=== PATIENT | male | born 1935 | race Caucasian/White ===

== ENCOUNTER 2017-02-27 16:43 | Inpatient (IN) | payer MEDICARE ==
[2017-02-27] MEDS ORDERED: DEXTROSE 40% GEL 15 GM TUBE PO PRN ×2 (17:27)
[2017-02-27] MEDS ORDERED: DEXTROSE 50%-WATER 25 GM/50 ML DISP.SYRIN IV PRN ×2 (17:27)
[2017-02-27] MEDS ORDERED: GLUCAGON,HUMAN RECOMB 1 MG INJ SUBCUT PRN (17:27)
--- NOTE | 2017-02-27 17:47 | PDOC H&P ---
History of Present Illness Admission Date/PCP: 02/27/17 16:43 SUKHI HOOPER, Patient complains of: unsteady on his feet. not thinking streight History of Present Illness: SHANIA BOURGEOIS is a 81 year old male Past Medical History Cardiac Medical History: Reports: Hypertension Pulmonary Medical History: Reports: None Neurological Medical History: Reports: Ischemic CVA Endocrine Medical History: Reports: None Renal/ Medical History: Reports: None Malignancy Medical History: Reports: None GI Medical History: Reports: None Musculoskeltal Medical History: Reports: Arthritis Skin Medical History: Reports: None Psychiatric Medical History: Reports: None Past Surgical History Past Surgical History: Reports: Carotid Endarterectomy Social History Information Source: Patient Lives with: Alone Smoking Status: Never Smoker Frequency of Alcohol Use: Occasional Hx Recreational Drug Use: No Drugs: None - Advance Directive Resuscitation Status: Full Code Family History Family History: Hypertension Parental Family History Reviewed: Yes Children Family History Reviewed: Yes Sibling(s) Family History Reviewed.: Yes Review of Systems All systems: as per [facility] Physical Exam General appearance: PRESENT: mild distress Head exam: PRESENT: atraumatic Eye exam: PRESENT: conjunctiva pink Neck exam: PRESENT: carotid bruit Respiratory exam: PRESENT: clear to auscultation shaun Cardiovascular exam: PRESENT: RRR, +S1, +S2 Pulses: PRESENT: other Vascular exam: PRESENT: normal capillary refill GI/Abdominal exam: PRESENT: normal bowel sounds, soft Extremities exam: PRESENT: full ROM Musculoskeletal exam: PRESENT: ambulatory Neurological exam: PRESENT: alert, abnormal gait, motor sensory deficit Psychiatric exam: PRESENT: flat affect Assessment & Plan - Diagnosis (1) TIA (transient ischemic attack) Qualifiers: Transient cerebral ischemia type: carotid artery syndrome (hemispheric) Qualified Code(s): G45.1 - Carotid artery syndrome (hemispheric) Is this a current diagnosis for this admission?: Yes (2) Confusion and disorientation Is this a current diagnosis for this admission?: Yes (3) Unsteady gait Is this a current diagnosis for this admission?: Yes (4) PAD (peripheral artery disease) Is this a current diagnosis for this admission?: Yes (5) HTN (hypertension) Qualifiers: Hypertension type: essential hypertension Qualified Code(s): I10 - Essential (primary) hypertension Is this a current diagnosis for this admission?: Yes (6) Hyperlipemia Qualifiers: Hyperlipidemia type: mixed hyperlipidemia Qualified Code(s): E78.2 - Mixed hyperlipidemia Is this a current diagnosis for this admission?: Yes
--- NOTE | 2017-02-27 18:02 | RADIOLOGY REPORT (SQ) ---
EXAM DESCRIPTION: CT HEAD WITHOUT COMPLETED DATE/TIME: 02/27/2017 5:39 pm REASON FOR STUDY: CVA altered mental status COMPARISON: None. TECHNIQUE: Axial images acquired through the brain without intravenous contrast. Images reviewed wi th bone, brain and subdural windows. Images stored on PACS. All CT scanners at this facility use dose modulation, iterative reconstruction, and/or weight based d osing when appropriate to reduce radiation dose to as low as reasonably achievable (ALARA). [facility]: Dose Right [facility]: CareDose [facility]: Dose Right [facility]: Teradose 4D [facility]: ServiceRelated RADIATION DOSE: 49mGy. LIMITATIONS: None. FINDINGS: VENTRICLES: Prominent, but not disproportionate to the degree of atrophy. CEREBRUM: Cortical atrophy is present. There is a small area of encephalomalacia in right frontal lo be on image 25 series 2. No masses. No hemorrhage. No midline shift. Normal zarate/white matter dif ferentiation. No evidence for acute infarction. CEREBELLUM: No masses. No hemorrhage. No alteration of density. No evidence for acute infarction. EXTRAAXIAL SPACES: No fluid collections. No masses. ORBITS AND GLOBE: No intra- or extraconal masses. Normal contour of globe without masses. CALVARIUM: No fracture. PARANASAL SINUSES: No fluid or mucosal thickening. SOFT TISSUES: No mass or hematoma. OTHER: No other significant finding. IMPRESSION: Involutional changes of aging with what appears to be an 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 There is no hemorrhage. COMMENT: Findings were discussed with Dr. Stock at 1756 hours on this date. TECHNICAL DOCUMENTATION: JOB ID: [id number] Quality ID # [id number]: Final reports with documentation of one or more dose reduction techniques (e.g., Au tomated exposure control, adjustment of the mA and/or kV according to patient size, use of iterative reconstruction technique) 2010 [employer]- All Rights Reserved
[2017-02-27 18:14] LABS: ABSOLUTE BASOPHILS # (AUTO) 0.2 10^3/uL (0.0-0.2); ABSOLUTE EOSINOPHILS # (AUTO) 0.2 10^3/uL (0.0-0.6); ABSOLUTE LYMPHOCYTES (AUTO) 2.2 10^3/uL (0.5-4.7); ABSOLUTE MONOCYTES (AUTO) 0.7 10^3/uL (0.1-1.4); ABSOLUTE NEUT (AUTO) 3.7 10^3/uL (1.7-8.2); BASOPHILS % (AUTO) 2.1 % (0-2); EOSINOPHILS % (AUTO) 3.4 % (0-6); HEMATOCRIT 37.3 % (37.9-51.0); HGB HCT DIFFERENCE 1.7; LYMPHOCYTES % (AUTO) 31.4 % (13-45); MEAN CORPUSCULAR HEMOGLOBIN 36.4 pg (27.0-33.4); MEAN CORPUSCULAR HGB CONC 34.8 g/dL (32.0-36.0); MEAN CORPUSCULAR VOLUME 105 fl (80-97); MONOCYTES % (AUTO) 10.4 % (3-13); RED BLOOD COUNT 3.56 10^6/uL (4.35-5.55); RED CELL DISTRIBUTION WIDTH 13.6 % (11.5-14.0); SEGMENTED NEUTROPHILS % (AUTO) 52.7 % (42-78); WHITE BLOOD COUNT 7.1 10^3/uL (4.0-10.5)
[2017-02-27 18:22] LABS: PROTHROMBIN TIME 13.1 SEC (11.4-15.4)
[2017-02-27 18:23] LABS: PARTIAL THROMBOPLASTIN TIME 27.2 SEC (23.5-35.8)
[2017-02-27 18:35] LABS: ALANINE AMINOTRANSFERASE 35 U/L (21-72); ALBUMIN 4.3 g/dL (3.5-5.0); ALKALINE PHOSPHATASE 58 U/L (38-126); ANION GAP 12 (5-19); ASPARTATE AMINO TRANSFERASE 35 U/L (17-59); BILIRUBIN,DIRECT 0.4 mg/dL (0.0-0.4); BILIRUBIN,TOTAL 0.6 mg/dL (0.2-1.3); BLOOD UREA NITROGEN 8 mg/dL (7-20); CALCIUM 9.2 mg/dL (8.4-10.2); CARBON DIOXIDE 29 mmol/L (22-30); CHLORIDE 102 mmol/L (98-107); CREATININE RESULT 0.87 mg/dL (0.52-1.25); GLUCOSE 108 mg/dL (75-110); POTASSIUM 3.5 mmol/L (3.6-5.0); SODIUM 142.5 mmol/L (137-145); TOTAL PROTEIN 7.8 g/dL (6.3-8.2)
[2017-02-27] MEDS: ENOXAPARIN SODIUM INJ 40 MG/0.4 ML DISP.SYRIN SUBCUT SCH (18:52)
[2017-02-27] MEDS: 1/2 NORMAL SALINE 1,000 ML IV PRN (18:56)
[2017-02-28] MEDS: 1/2 NORMAL SALINE 1,000 ML IV PRN ×2 (00:55→08:32)
[2017-02-28 06:15] LABS: ABSOLUTE BASOPHILS # (AUTO) 0.1 10^3/uL (0.0-0.2); ABSOLUTE EOSINOPHILS # (AUTO) 0.2 10^3/uL (0.0-0.6); ABSOLUTE LYMPHOCYTES (AUTO) 1.5 10^3/uL (0.5-4.7); ABSOLUTE MONOCYTES (AUTO) 0.6 10^3/uL (0.1-1.4); ABSOLUTE NEUT (AUTO) 2.6 10^3/uL (1.7-8.2); BASOPHILS % (AUTO) 1.3 % (0-2); EOSINOPHILS % (AUTO) 4.3 % (0-6); HEMATOCRIT 36.1 % (37.9-51.0); HEMOGLOBIN 12.5 g/dL (13.5-17.0); HGB HCT DIFFERENCE 1.4; LYMPHOCYTES % (AUTO) 30.7 % (13-45); MEAN CORPUSCULAR HEMOGLOBIN 36.7 pg (27.0-33.4); MEAN CORPUSCULAR HGB CONC 34.7 g/dL (32.0-36.0); MEAN CORPUSCULAR VOLUME 106 fl (80-97); MONOCYTES % (AUTO) 12.5 % (3-13); RED BLOOD COUNT 3.41 10^6/uL (4.35-5.55); RED CELL DISTRIBUTION WIDTH 13.1 % (11.5-14.0); SEGMENTED NEUTROPHILS % (AUTO) 51.2 % (42-78)
[2017-02-28 06:36] LABS: ALANINE AMINOTRANSFERASE 26 U/L (21-72); ALBUMIN 3.6 g/dL (3.5-5.0); ALKALINE PHOSPHATASE 45 U/L (38-126); ANION GAP 8 (5-19); ASPARTATE AMINO TRANSFERASE 27 U/L (17-59); BILIRUBIN,DIRECT 0.3 mg/dL (0.0-0.4); BILIRUBIN,TOTAL 0.6 mg/dL (0.2-1.3); BLOOD UREA NITROGEN 7 mg/dL (7-20); CALCIUM 8.9 mg/dL (8.4-10.2); CARBON DIOXIDE 30 mmol/L (22-30); CHLORIDE 102 mmol/L (98-107); CREATININE RESULT 0.75 mg/dL (0.52-1.25); GLUCOSE 100 mg/dL (75-110); POTASSIUM 3.1 mmol/L (3.6-5.0); SODIUM 139.7 mmol/L (137-145); TOTAL PROTEIN 6.9 g/dL (6.3-8.2)
--- NOTE | 2017-02-28 08:43 | PDOC PROGRESS REPORT ---
Subjective Progress Note for:: 02/28/17 Subjective:: The patient states to feel better. He was evaluated by physical therapy yesterday and was deemed to be unstable on his feet. His CT of the brain showed just age-related small vessel disease. His potassium was low and was supplemented. Discussed the DNR issue with the patient and his son. Discussed the need to evaluate the carotid because of prior history of endarterectomy and complete blockage of the carotid Physical Exam Vital Signs: Temp Pulse Resp BP Pulse Ox 98.4 F 82 16 148/73 H 99 02/28/17 08:00 02/28/17 08:00 02/28/17 08:00 02/28/17 08:00 02/28/17 08:00 Intake & Output 02/27/17 02/28/17 03/01/17 06:59 06:59 06:59 Intake Total 1203 Balance 1203 Weight 77.9 kg General appearance: PRESENT: no acute distress Head exam: PRESENT: atraumatic Eye exam: PRESENT: conjunctiva pink Neck exam: PRESENT: tenderness Additional comments: Status post right carotid surgery Respiratory exam: PRESENT: clear to auscultation shaun Cardiovascular exam: PRESENT: RRR, +S1, +S2 Pulses: PRESENT: +1 pedal pulses bilateral GI/Abdominal exam: PRESENT: normal bowel sounds, soft Extremities exam: PRESENT: other Musculoskeletal exam: PRESENT: other Neurological exam: PRESENT: alert, awake Results Laboratory Results: 02/28/17 05:35 02/28/17 05:55 02/27/17 02/27/17 02/28/17 18:00 18:00 05:35 WBC 7.1 5.0 RBC 3.56 L 3.41 L Hgb 13.0 L 12.5 L Hct 37.3 L 36.1 L MCV 105 H 106 H MCH 36.4 H 36.7 H MCHC 34.8 34.7 RDW 13.6 13.1 Plt Count 271 236 Seg Neutrophils % 52.7 51.2 Lymphocytes % 31.4 30.7 Monocytes % 10.4 12.5 Eosinophils % 3.4 4.3 Basophils % 2.1 H 1.3 Absolute Neutrophils 3.7 2.6 Absolute Lymphocytes 2.2 1.5 Absolute Monocytes 0.7 0.6 Absolute Eosinophils 0.2 0.2 Absolute Basophils 0.2 0.1 Sodium 142.5 Potassium 3.5 L Chloride 102 Carbon Dioxide 29 Anion Gap 12 BUN 8 Creatinine 0.87 Est GFR ( Amer) > 60 Est GFR (Non-Af Amer) > 60 Glucose 108 Calcium 9.2 Total Bilirubin 0.6 AST 35 ALT 35 Alkaline Phosphatase 58 Total Protein 7.8 Albumin 4.3 02/28/17 05:55 WBC RBC Hgb Hct MCV MCH MCHC RDW Plt Count Seg Neutrophils % Lymphocytes % Monocytes % Eosinophils % Basophils % Absolute Neutrophils Absolute Lymphocytes Absolute Monocytes Absolute Eosinophils Absolute Basophils Sodium 139.7 Potassium 3.1 L Chloride 102 Carbon Dioxide 30 Anion Gap 8 BUN 7 Creatinine 0.75 Est GFR ( Amer) > 60 Est GFR (Non-Af Amer) > 60 Glucose 100 Calcium 8.9 Total Bilirubin 0.6 AST 27 ALT 26 Alkaline Phosphatase 45 Total Protein 6.9 Albumin 3.6 Impressions: Head CT 02/27/17 00:00 IMPRESSION: Involutional changes of aging with what appears to be an 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 There is no hemorrhage. Assessment & Plan - Diagnosis (1) TIA (transient ischemic attack) Qualifiers: Transient cerebral ischemia type: carotid artery syndrome (hemispheric) Qualified Code(s): G45.1 - Carotid artery syndrome (hemispheric) Is this a current diagnosis for this admission?: YesPlan: CT of the brain negative for any acute event.Old ischemic stroke and age- related atrophy (2) Confusion and disorientation Is this a current diagnosis for this admission?: YesPlan: Improved (3) Unsteady gait Is this a current diagnosis for this admission?: YesPlan: Continue PT evaluation and will consider 4 prong cane for walker (4) PAD (peripheral artery disease) Is this a current diagnosis for this admission?: YesPlan: We will do carotid Doppler and echo (5) HTN (hypertension) Qualifiers: Hypertension type: essential hypertension Qualified Code(s): I10 - Essential (primary) hypertension Is this a current diagnosis for this admission?: YesPlan: Continue current medications. Hydrochlorothiazide Will hold (6) Hyperlipemia Qualifiers: Hyperlipidemia type: mixed hyperlipidemia Qualified Code(s): E78.2 - Mixed hyperlipidemia Is this a current diagnosis for this admission?: YesPlan: Continue current medication (7) Hypokalemia Is this a current diagnosis for this admission?: YesPlan: Supplement with potassium
[2017-02-28] MEDS ORDERED: [UNRECOGNIZED DRUG - OTHER] PO SCH (10:00)
[2017-02-28] MEDS ORDERED: CYANOCOBALAMIN PO SCH (10:00)
[2017-02-28] MEDS ORDERED: PYRIDOXINE PO SCH (10:00)
[2017-02-28] MEDS: AMLODIPINE BESYLATE 5 MG TABLET PO SCH (10:52)
[2017-02-28] MEDS: METOPROLOL TARTRATE 50 MG TABLET PO SCH ×2 (10:52→22:02)
[2017-02-28] MEDS: EZETIMIBE 10 MG TABLET PO SCH (10:52)
[2017-02-28] MEDS: BENAZEPRIL HCL 10 MG TABLET PO SCH (10:53)
[2017-02-28] MEDS: POTASSIUM CHLORIDE 10 MEQ TABLET.SA PO SCH ×2 (10:54→22:02)
[2017-02-28] MEDS: ASPIRIN 81 MG TABLET, ENT COATED PO SCH (10:55)
[2017-02-28] MEDS ORDERED: LANSOPRAZOLE 30 MG TAB.RAP.DR PO ONE (11:00)
[2017-02-28] MEDS ORDERED: CYANOCOBALAMIN/FA/PYRIDOXINE TABLET PO ONE (11:00)
--- NOTE | 2017-02-28 11:58 | RADIOLOGY REPORT (SQ) ---
EXAM DESCRIPTION: CAROTID DOPPLER COMPLETED DATE/TIME: 02/28/2017 11:46 am REASON FOR STUDY: CVA VS TIA COMPARISON: None. TECHNIQUE: Grayscale ultrasound, Doppler velocity and spectra, and color Doppler images acquired of the extra-cranial carotid and vertebral arteries. Images stored on PACS. LIMITATIONS: None. FINDINGS: RIGHT CAROTID CCA Velocities: Within normal limits. ICA Velocities Occluded. Minimal flow seen in the mid common carotid. No diastolic flow. Proximal ICA/CCA peak systolic ratio NA. Significant plaque noted within the right internal carotid artery only trace flow seen within the mid portion. LEFT CAROTID CCA Velocities: Within normal limits. ICA Velocities Peak systolic 0.94 m/s. End diastolic 0.23 m/s. Proximal ICA/CCA peak systolic ratio 0.8. Spectra normal. No significant plaque. VERTEBRAL ARTERIES: Antegrade flow. Normal waveforms. SUBCLAVIAN ARTERIES: No finding. OTHER: No other significant finding. IMPRESSION: Occluded/nearly occluded right internal carotid artery with only a small trickle of flow seen within the midportion. No hemodynamically significant stenosis in the left internal carotid ar dharmesh. COMMENT: Quality ID #[id number]: Velocity criteria are extrapolated from the diameter data as defined by t he Society of Radiologists in Ultrasound Consensus Conference. Radiology 2003: 229; 340-346. TECHNICAL DOCUMENTATION: JOB ID: [id number] [employer]- All Rights Reserved
--- NOTE | 2017-02-28 13:15 | XCELERA REPORT ---
[address] [address] Transthoracic Echocardiogram Report Name: SHANIA BOURGEOIS Age: 81 yrs Gender: Male : 1935 Patient Status: Inpatient Patient Location: [id number]\S\328\S\A Study Date: 02/28/2017 09:36 AM Height: 73 in Weight: 171 lb BSA: 2.0 m2 Procedure: A complete two-dimensional transthoracic echocardiogram was performed (2D, M-mode, spectral and color flow Doppler). The study was technically adequate with some images being suboptimal in quality. Reason For Study: CVA VS TIA Ordering Physician: SUKHI HOOPER Performed By: Hermelinda Colunga Interpretation Summary The left ventricular ejection fraction is normal. There is mild concentric left ventricular hypertrophy. Doppler measurements suggest pseudonormalized left ventricular relaxation, which is associated with grade II/IV or mild to moderate diastolic dysfunction The left ventricle is grossly normal size. Wall motion cannot be accurately commented on, but no definite regional wall motion abnormalities noted. The right ventricular systolic function is normal. The left atrial size is normal. The right atrium is normal in size There is no mitral valve stenosis. There is a mild amount of mitral regurgitation There is a mild amount of aortic regurgitation There is no aortic stenosis There is a mild amount of tricuspid regurgitation There is mild pulmonary hypertension by echo Right ventricular systolic pressure is estimated to be elevated at 30- 40mmHg. There is no pericardial effusion. No definite cardiac source of CVA/TIA noted on this particular trans- thoracic study. Consider REGINA if clinically indicated. May consider mobile cardiac telemetry monitoring (MCT) for ruling out transient AFIB. MMode/2D Measurements \T\ Calculations RVDd: 3.1 cm LVIDd: 4.2 cm FS: 33.5 % Ao root diam: 3.1 cm IVSd: 1.1 cm LVIDs: 2.8 cm EDV(Teich): 77.4 ml LVPWd: 1.1 cm ESV(Teich): 28.9 ml Ao root area: 7.7 cm2 EF(Teich): 62.6 % Doppler Measurements \T\ Calculations MV E max sujata: MV dec slope: Ao V2 max: AI max sujata: 80.4 cm/sec 149.4 cm/sec 425.9 cm/sec MV A max sujata: 352.9 cm/sec2 Ao max PG: AI max P.8 cm/sec MV dec time: 8.9 mmHg 72.6 mmHg MV E/A: 0.69 0.23 sec AI dec slope: 369.7 cm/sec2 AI P1/2t: 337.5 msec LV V1 max PG: PA V2 max: PI end-d sujaat: TR max sujata: 7.2 mmHg 88.4 cm/sec 106.5 cm/sec 264.1 cm/sec LV V1 max: PA max P.1 mmHg TR max P.8 cm/sec 28.0 mmHg Left Ventricle The left ventricle is grossly normal size. There is mild concentric left ventricular hypertrophy. The left ventricular ejection fraction is normal. Doppler measurements suggest pseudonormalized left ventricular relaxation, which is associated with grade II/IV or mild to moderate diastolic dysfunction. Wall motion cannot be accurately commented on, but no definite regional wall motion abnormalities noted. Right Ventricle The right ventricle is grossly normal size. There is normal right ventricular wall thickness. The right ventricular systolic function is normal. Atria The right atrium is normal in size. The left atrial size is normal. Interarterial septum not well visualized and not well dopplered. Cannot comment on ASD/PFO presence. Mitral Valve There is mild mitral leaflet calcification. There is mild mitral annular calcification. There is no mitral valve stenosis. There is a mild amount of mitral regurgitation. Aortic Valve The aortic valve is mildly calcified. There is no aortic stenosis. There is a mild amount of aortic regurgitation. Tricuspid Valve The tricuspid valve is not well visualized, but is grossly normal. There is no tricuspid stenosis. There is a mild amount of tricuspid regurgitation. There is mild pulmonary hypertension by echo. Right ventricular systolic pressure is estimated to be elevated at 30-40mmHg. Pulmonic Valve The pulmonic valve is not well visualized. Great Vessels The aortic root is not well visualized but is probably normal size. The inferior vena cava appeared normal and decreased > 50% with respiration (RAP 5-10 mmHg). Effusions There is no pericardial effusion. Incidental Findings No definite cardiac source of CVA/TIA noted on this particular trans- thoracic study. Consider REGINA if clinically indicated. May consider mobile cardiac telemetry monitoring (MCT) for ruling out transient AFIB. : SUKHI HOOPER > Griselda Baldwin
--- NOTE | 2017-02-28 13:32 | EKG REPORT ---
SEVERITY:- ABNORMAL ECG - SINUS RHYTHM INFERIOR INFARCT, AGE INDETERMINATE NONSPECIFIC T ABNORMALITIES, ANTERIOR LEADS : Confirmed by: Rolly Alba MD 28-Feb-2017 13:32:10
[2017-02-28] MEDS: ENOXAPARIN SODIUM INJ 40 MG/0.4 ML DISP.SYRIN SUBCUT SCH (18:52)
--- NOTE | 2017-02-28 19:02 | RADIOLOGY REPORT (SQ) ---
EXAM DESCRIPTION: MRI LUMBAR SPINE WITHOUT COMPLETED DATE/TIME: 02/28/2017 6:45 pm REASON FOR STUDY: Abnormal Gait COMPARISON: None. TECHNIQUE: Sagittal and Axial imaging includes T1, T2, STIR and gradient echo sequences. Coronal T2/ HASTE imaging. LIMITATIONS: None. FINDINGS: VISUALIZED UPPER ABDOMEN: Limited evaluation. No acute or suspicious findings suggested. SEGMENTATION: No transitional anatomy. The lowest well-developed disc space is labeled L5-S1. ALIGNMENT: Minimal scoliosis convex left upper lumbar in right lower lumbar. VERTEBRAE: Intact. BONE MARROW: Diffuse marked reactive endplate changes L1- 2, L2-3, L3-4, L5-S1. Moderate reactive ch anges L4-5. DISC SIGNAL: Generalized loss of T2 signal and loss of height. POSTERIOR ELEMENTS: Generally intact. No pars defect evident. HARDWARE: None in the spine. CORD AND CONUS: Normal in size and signal intensity. Conus at the appropriate level. SOFT TISSUES: No aortic aneurysm seen. No bulky retroperitoneal adenopathy or mass. No paraspinal mas s or fluid. L1-L2: Generalized degenerative disc with asymmetric rightward bulge. Ligamentous and facet hypertro phy. Moderate narrowing of the right exit foramina. L2-L3: Marked degenerative disc with broad-based bulge asymmetric right. Facet and ligamentous hyper trophy with lateral recess narrowing. Moderate narrowing of the right exit foramina. Moderate centr al canal stenosis. L3-L4: Generalized degenerative disc with broad-based bulge. Facet and ligamentous hypertrophy with lateral recess narrowing. Moderate narrowing of the left exit foramina and mild narrowing of the rig ht exit foramina. Marked central canal stenosis. L4-L5: Generalized degenerative disc with broad-based bulge. Facet and ligamentous hypertrophy. Mod erate narrowing of the exit foramina. Moderate central canal stenosis. L5-S1: Asymmetric right paracentral to lateral protrusion. Facet and ligamentous hypertrophy. Centr al deviation of the central S1 root. Marked compression of the exiting L5 root. LOWER THORACIC: Incompletely imaged. No stenosis seen. SACRUM: Visualized upper sacrum intact. OTHER: No other significant findings. IMPRESSION: Multilevel degenerative disc disease and osteoarthritis. Generalize exit foraminal stenosis and spinal stenosis with the most severe spinal stenosis at L3-4. L5-S1 there is focal right paracentral to lateral protrusion resulting in marked compression of the e xiting right L5 root in central deviation of the central S1 root. TECHNICAL DOCUMENTATION: JOB ID: [id number] [employer]- All Rights Reserved
[2017-03-01 06:30] LABS: ANION GAP 9 (5-19); BLOOD UREA NITROGEN 9 mg/dL (7-20); CARBON DIOXIDE 28 mmol/L (22-30); CHLORIDE 103 mmol/L (98-107); CREATININE RESULT 0.85 mg/dL (0.52-1.25); GLUCOSE 104 mg/dL (75-110); MAGNESIUM 1.6 mg/dL (1.6-2.3); POTASSIUM 3.7 mmol/L (3.6-5.0); SODIUM 139.7 mmol/L (137-145)
[2017-03-01] MEDS: LANSOPRAZOLE 30 MG TAB.RAP.DR PO SCH (09:30)
[2017-03-01] MEDS: BENAZEPRIL HCL 10 MG TABLET PO SCH (09:30)
[2017-03-01] MEDS: POTASSIUM CHLORIDE 10 MEQ TABLET.SA PO SCH ×2 (09:30→21:03)
[2017-03-01] MEDS: CYANOCOBALAMIN/FA/PYRIDOXINE TABLET PO SCH (09:30)
[2017-03-01] MEDS: AMLODIPINE BESYLATE 5 MG TABLET PO SCH (09:31)
[2017-03-01] MEDS: METOPROLOL TARTRATE 50 MG TABLET PO SCH ×2 (09:31→21:03)
[2017-03-01] MEDS: EZETIMIBE 10 MG TABLET PO SCH (09:31)
[2017-03-01] MEDS: ASPIRIN 81 MG TABLET, ENT COATED PO SCH (09:31)
--- NOTE | 2017-03-01 14:28 | PDOC PROGRESS REPORT ---
Subjective Progress Note for:: 03/01/17 Subjective:: The patient states to feel better. Long discussion about the MRI report with both him and his daughter who is his healthcare power of regulatory attorney. Discussed the degenerative disc disease and spinal stenosis. Discussed also the some mild brain atrophy age-related and an old frontal small stroke. Discussed the need to have rehab and physical therapy. The patient finally agreed to it. Physical Exam Vital Signs: Temp Pulse Resp BP Pulse Ox 98.4 F 63 16 145/62 H 99 03/01/17 12:03 03/01/17 12:03 03/01/17 12:03 03/01/17 12:03 03/01/17 12:03 Intake & Output 02/28/17 03/01/17 03/02/17 06:59 06:59 06:59 Intake Total 1203 231 Output Total 1350 Balance 1203 -1119 Weight 77.9 kg 77.7 kg General appearance: PRESENT: mild distress Head exam: PRESENT: atraumatic Eye exam: PRESENT: conjunctiva pink Neck exam: PRESENT: carotid bruit, other Respiratory exam: PRESENT: clear to auscultation shaun Cardiovascular exam: PRESENT: RRR, +S1, +S2 Pulses: PRESENT: +1 pedal pulses bilateral Vascular exam: PRESENT: normal capillary refill GI/Abdominal exam: PRESENT: normal bowel sounds - Appointment 1 cold, soft Extremities exam: PRESENT: full ROM Musculoskeletal exam: PRESENT: other Neurological exam: PRESENT: alert, awake, abnormal gait Results Laboratory Results: 02/28/17 05:35 03/01/17 05:20 03/01/17 05:20 Sodium 139.7 Potassium 3.7 Chloride 103 Carbon Dioxide 28 Anion Gap 9 BUN 9 Creatinine 0.85 Est GFR ( Amer) > 60 Est GFR (Non-Af Amer) > 60 Glucose 104 Calcium 9.0 Magnesium 1.6 Impressions: Head CT 02/27/17 00:00 IMPRESSION: Involutional changes of aging with what appears to be an 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 There is no hemorrhage. Lumbar Spine MRI 02/28/17 00:00 IMPRESSION: Multilevel degenerative disc disease and osteoarthritis. Generalize exit foraminal stenosis and spinal stenosis with the most severe spinal stenosis at L3-4. L5-S1 there is focal right paracentral to lateral protrusion resulting in marked compression of the exiting right L5 root in central deviation of the central S1 root. Carotid Doppler Study 02/28/17 06:00 IMPRESSION: Occluded/nearly occluded right internal carotid artery with only a small trickle of flow seen within the midportion. No hemodynamically significant stenosis in the left internal carotid artery. Assessment & Plan - Diagnosis (1) TIA (transient ischemic attack) Qualifiers: Transient cerebral ischemia type: carotid artery syndrome (hemispheric) Qualified Code(s): G45.1 - Carotid artery syndrome (hemispheric) Is this a current diagnosis for this admission?: YesPlan: Some mild brain atrophy with old small frontal infarct (2) Confusion and disorientation Is this a current diagnosis for this admission?: YesPlan: Improved (3) Unsteady gait Is this a current diagnosis for this admission?: YesPlan: MRI consistent with degenerative disc disease and multilevel spinal stenosis of the lumbar spine. The combination of spinal stenosis degenerative disc disease and some brain atrophy might be contributing to his unsteady gait and difficulty maintaining balance. The patient is not safe to ambulate on his own and the family and the patient have finally agreed for a short-term rehab to trying to improve his ambulation and activity of daily living (4) PAD (peripheral artery disease) Is this a current diagnosis for this admission?: YesPlan: We will do carotid Doppler and echo (5) HTN (hypertension) Qualifiers: Hypertension type: essential hypertension Qualified Code(s): I10 - Essential (primary) hypertension Is this a current diagnosis for this admission?: YesPlan: Continue current medications. Hydrochlorothiazide Will hold (6) Hyperlipemia Qualifiers: Hyperlipidemia type: mixed hyperlipidemia Qualified Code(s): E78.2 - Mixed hyperlipidemia Is this a current diagnosis for this admission?: YesPlan: Continue current medication (7) Hypokalemia Is this a current diagnosis for this admission?: YesPlan: Supplement with potassium
[2017-03-01] MEDS: ENOXAPARIN SODIUM INJ 40 MG/0.4 ML DISP.SYRIN SUBCUT SCH (18:37)
[2017-03-02] MEDS: LANSOPRAZOLE 30 MG TAB.RAP.DR PO SCH (07:35)
--- NOTE | 2017-03-02 08:51 | PDOC PROGRESS REPORT ---
Subjective Progress Note for:: 03/02/17 Subjective:: The patient states to feel relatively well. He denies any new symptoms. He was able to ambulate with assistance but is still requiring a walker and at least one and possibly 2 person assist. He is very unsteady on his feet and I am concerned about fall precautions. Awaiting for insurance preauthorization prior to bed offer at the rehab center Physical Exam Vital Signs: Temp Pulse Resp BP Pulse Ox 98.6 F 74 16 133/71 H 100 03/02/17 08:14 03/02/17 08:14 03/02/17 08:14 03/02/17 08:14 03/02/17 08:14 Intake & Output 03/01/17 03/02/17 03/03/17 06:59 06:59 06:59 Intake Total 231 6 Output Total 1350 425 Balance -1119 -419 Weight 77.7 kg 78.7 kg General appearance: PRESENT: mild distress Head exam: PRESENT: atraumatic Neck exam: PRESENT: other Additional comments: Bilateral incisions over the carotids Respiratory exam: PRESENT: clear to auscultation shaun Cardiovascular exam: PRESENT: RRR, +S1, +S2 Pulses: PRESENT: +1 pedal pulses bilateral Vascular exam: PRESENT: normal capillary refill GI/Abdominal exam: PRESENT: normal bowel sounds, soft Extremities exam: PRESENT: other Musculoskeletal exam: PRESENT: full ROM Neurological exam: PRESENT: abnormal gait, other Results Laboratory Results: 02/28/17 05:35 03/01/17 05:20 Impressions: Head CT 02/27/17 00:00 IMPRESSION: Involutional changes of aging with what appears to be an 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 There is no hemorrhage. Lumbar Spine MRI 02/28/17 00:00 IMPRESSION: Multilevel degenerative disc disease and osteoarthritis. Generalize exit foraminal stenosis and spinal stenosis with the most severe spinal stenosis at L3-4. L5-S1 there is focal right paracentral to lateral protrusion resulting in marked compression of the exiting right L5 root in central deviation of the central S1 root. Carotid Doppler Study 02/28/17 06:00 IMPRESSION: Occluded/nearly occluded right internal carotid artery with only a small trickle of flow seen within the midportion. No hemodynamically significant stenosis in the left internal carotid artery. 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 Will continue with physical therapy and an my professional opinion the patient can benefit more from a rehab at the short-term rehab facility. (4) PAD (peripheral artery disease) Is this a current diagnosis for this admission?: YesPlan: We will do carotid Doppler and echo (5) HTN (hypertension) Qualifiers: Hypertension type: essential hypertension Qualified Code(s): I10 - Essential (primary) hypertension Is this a current diagnosis for this admission?: YesPlan: Continue current medications. Hydrochlorothiazide Will hold (6) Hyperlipemia Qualifiers: Hyperlipidemia type: mixed hyperlipidemia Qualified Code(s): E78.2 - Mixed hyperlipidemia Is this a current diagnosis for this admission?: YesPlan: Continue current medication (7) Hypokalemia Is this a current diagnosis for this admission?: Yes
[2017-03-02] MEDS: ASPIRIN 81 MG TABLET, ENT COATED PO SCH (09:29)
[2017-03-02] MEDS: AMLODIPINE BESYLATE 5 MG TABLET PO SCH (09:29)
[2017-03-02] MEDS: POTASSIUM CHLORIDE 10 MEQ TABLET.SA PO SCH (09:29)
[2017-03-02] MEDS: METOPROLOL TARTRATE 50 MG TABLET PO SCH (09:29)
[2017-03-02] MEDS: EZETIMIBE 10 MG TABLET PO SCH (09:29)
[2017-03-02] MEDS: CYANOCOBALAMIN/FA/PYRIDOXINE TABLET PO SCH (09:30)
[2017-03-02] MEDS: BENAZEPRIL HCL 10 MG TABLET PO SCH (09:30)
[2017-03-02] MEDS ORDERED: ERGOCALCIFEROL (VITAMIN D2) 50000 UNIT (1.25 MG) CAPSULE PO SCH (10:00)
--- NOTE | 2017-03-02 14:06 | PDOC TRANSFER SUMMARY ---
General - Admit/Disc Date/PCP Admission Date/Primary Care Provider: 02/27/17 16:43 SUKHI HOOPER, Discharge Date: 03/02/17 - Discharge Diagnosis (1) Confusion and disorientation Is this a current diagnosis for this admission?: Yes (2) HTN (hypertension) Is this a current diagnosis for this admission?: Yes (3) Hyperlipemia Is this a current diagnosis for this admission?: Yes (4) Hypokalemia Is this a current diagnosis for this admission?: Yes (5) PAD (peripheral artery disease) Is this a current diagnosis for this admission?: Yes (6) TIA (transient ischemic attack) Is this a current diagnosis for this admission?: Yes (7) Unsteady gait Is this a current diagnosis for this admission?: Yes - Additional Information Resuscitation Status: Full Code Home Medications: Amlodipine Besylate [Norvasc 5 mg Tablet] 5 mg PO DAILY 02/27/17 Aspirin [Ecotrin 81 mg EC Tablet] 81 mg PO DAILY 02/27/17 Benazepril HCl [Lotensin 10 mg Tablet] 10 mg PO DAILY 02/27/17 Cyanocobalamin/FA/Pyridoxine [Folplex 2.2 Tablet] 1 tab PO DAILY 02/27/17 Ergocalciferol (Vitamin D2) [Drisdol 50,000 unit (1.25MG) Capsule] 50,000 unit PO FR@1000 02/27/17 Ezetimibe [Zetia 10 mg Tablet] 10 mg PO DAILY 02/27/17 Hydrochlorothiazide 25 mg PO DAILY 02/27/17 Ibuprofen 200 mg PO Q8HP PRN 02/27/17 Metoprolol Tartrate [Lopressor 50 mg Tablet] 50 mg PO Q12 02/27/17 Omeprazole 40 mg PO DAILY 02/27/17 History of Present Illness Admission Date/PCP: 02/27/17 16:43 SUKHI HOOPER, History of Present Illness: Please see h&P for full HPI Hospital Course Hospital Course: Patient was a direct admission from Sukhi Hooper MD's office for confusion, disorientation, and unsteady gait. There is concern for TIA which is ruled out within MRI. MRI revealed mild brain atrophy and small old right frontal infarct. Patient was found to have spinal stenosis and was visited by physical therapy. He was still quite unsteady. Patient hctz was stopped as this was felt to be contributing to his unsteadiness. Patient pain was relatively well controlled. He was accepted to rehabilitation. Physical Exam Vital Signs: Temp Pulse Resp BP Pulse Ox 98.5 F 65 16 129/57 H 100 03/02/17 11:55 03/02/17 11:55 03/02/17 11:55 03/02/17 11:55 03/02/17 11:55 Intake & Output 03/01/17 03/02/17 03/03/17 06:59 06:59 06:59 Intake Total 231 6 Output Total 1350 425 Balance -1119 419 Weight 77.7 kg 78.7 kg Exam: Please see Sukhi Hooper MD his note from today for physical examination. 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 There is no hemorrhage. Lumbar Spine MRI 02/28/17 00:00 IMPRESSION: Multilevel degenerative disc disease and osteoarthritis. Generalize exit foraminal stenosis and spinal stenosis with the most severe spinal stenosis at L3-4. L5-S1 there is focal right paracentral to lateral protrusion resulting in marked compression of the exiting right L5 root in central deviation of the central S1 root. Carotid Doppler Study 02/28/17 06:00 IMPRESSION: Occluded/nearly occluded right internal carotid artery with only a small trickle of flow seen within the midportion. No hemodynamically significant stenosis in the left internal carotid artery. Status: Imported from PACS Transfer Plan - Time Spent with Patient Time spent with patient: Less than 30 Minutes Qualifiers PATEINT BEING DISCHARGED WITH ANY OF THE FOLLOWING DIAGNOSIS?: No Plan Time Spent: Less than 30 Minutes
[2017-03-02 15:30] VITALS: BP 127/66
== END 2017-03-02 17:19 | DRG 69 ==
LOC: 3S 16:43
PROVIDERS: ADMIT Internal Medicine; ATTEND Internal Medicine
DX: G45.1 Carotid artery syndrome (hemispheric) (principal); I10 Essential (primary) hypertension; E87.6 Hypokalemia; R26.81 Unsteadiness on feet; M48.06 Spinal stenosis, lumbar region; E78.2 Mixed hyperlipidemia; I73.9 Peripheral vascular disease, unspecified; Z79.82 Long term (current) use of aspirin; Z79.899 Other long term (current) drug therapy
CPT/HCPCS: 36415; 70450; 72148; 80048; 80053; 83735; 85025; 85610; 85730; 93005; 93010; 93306; 93880; G8978-GP; G8979-GP; G8987-GO; G8988-GO; G8996-GN; G8997-GN; G8998-GN; J1650; J3490

== ENCOUNTER 2017-07-23 19:47 | Inpatient (IN) | payer MEDICARE ==
--- NOTE | 2017-07-23 20:16 | ER Document Report ---
ED Fall - General Mode of Arrival: Medic Information source: Patient, Relative TRAVEL OUTSIDE OF THE [place] IN LAST 30 DAYS: No - HPI Patient complains to provider of: Fall, right leg pain, and generalized weakness Occurred: This morning Where: Home, Indoors Context: Lost balance Location of injury/pain: Other - see notes above <LUZ MARINA BARRON - Last Filed: 07/23/17 22:19> <PRATIK DUFFY - Last Filed: 07/23/17 22:48> - General Chief Complaint: Fall Stated Complaint: FALL/ARM NUMBNESS Time Seen by Provider: 07/23/17 19:58 Notes: 81 year old male with history of hypertension and dyslipidemia presents to the ED via EMS after falling this morning at approximately 0700 when trying to get out of bed and laying on the ground for close to 12 hours. Patient reports that he lost his balance and fell, but did not hit his head or any part of his body while falling. Patient complains of diffuse right leg pain and generalized weakness, and denies any hip pain. Patient reports that he normally has some trouble walking, but is able to walk. Patient was recently in rehab for left leg weakness. PCP: Dr. Stock (LUZ MARINA BARRON) - Related data Allergies/Adverse Reactions: No Known Allergies Allergy (Verified 07/23/17 20:02) Past Medical History - General Information source: Patient - Social History Smoking Status: Unknown if Ever Smoked Family History: Hypertension - Past Medical History Cardiac Medical History: Reports: Hx Hypercholesterolemia, Hx Hypertension Denies: Hx Heart Attack Neurological Medical History: Denies: Hx Cerebrovascular Accident Endocrine Medical History: Denies: Hx Diabetes Mellitus Type 2 Musculoskeltal Medical History: Reports Hx Arthritis Past Surgical History: Reports: Hx Carotid Endarterectomy <LUZ MARINA BARRON - Last Filed: 07/23/17 22:19> Review of Systems - Review of Systems Constitutional: No symptoms reported EENT: No symptoms reported Cardiovascular: No symptoms reported Respiratory: No symptoms reported Gastrointestinal: No symptoms reported Genitourinary: No symptoms reported Male Genitourinary: No symptoms reported Musculoskeletal: See HPI, Other - right leg pain Skin: No symptoms reported Hematologic/Lymphatic: No symptoms reported Neurological/Psychological: See HPI, Weakness - generalized -: Yes All other systems reviewed and negative <LUZ MARINA BARRON - Last Filed: 07/23/17 22:19> Physical Exam <LUZ MARINA BARRON - Last Filed: 07/23/17 22:19> <PRATIK DUFFY - Last Filed: 07/23/17 22:48> - Vital signs Vitals: Pulse Ox 100 07/23/17 20:42 - Notes Notes: GENERAL: Alert, interacts well. No acute distress. HEAD: Normocephalic, atraumatic. EYES: Pupils equal, round, and reactive to light. Extraocular movements intact. ENT: Oral mucosa moist, tongue midline. NECK: Full range of motion. Supple. Trachea midline. LUNGS: Clear to auscultation bilaterally, no wheezes, rales, or rhonchi. No respiratory distress. HEART: Regular rate and rhythm. 3/6 systolic murmur. No gallops or rubs. ABDOMEN: Soft, non-tender. Non-distended. Bowel sounds present in all 4 quadrants. EXTREMITIES: Moves all 4 extremities spontaneously, but with bilateral ataxia with finger to nose test. No edema, radial and dorsalis pedis pulses 2/4 bilaterally. No cyanosis. Weakness with right leg raising. See skin exam below. NEUROLOGICAL: Alert and oriented x3. Normal speech. PSYCH: Normal affect, normal mood. SKIN: Warm, dry, normal turgor. Bruising to the right flank. Small blister on buttocks over the coccyx. Large area of erythema over the left greater trochanter. Area of erythema to the center and left of the sacrum. Some skin breakdown over the coccyx and sacral region. (LUZ MARINA BARRON) Course - Laboratory Result Diagrams: 07/23/17 21:11 07/23/17 20:57 - Consults Dr. Barrett Time consulted: 10:04 <LUZ MARINA BARRON - Last Filed: 07/23/17 22:19> - Laboratory Result Diagrams: 07/23/17 21:11 07/23/17 20:57 <PRATIK DUFFY - Last Filed: 07/23/17 22:48> - Re-evaluation Re-evalutation: 07/23/17 22:33 CBC shows anemia with hemoglobin 9.9, coags normal, platelets normal, no leukocytosis, chemistries grossly unremarkable although the CK is elevated at 495, not as elevated as I would have expected for having laid on the ground for over 12 hours, troponin negative. X-rays of the hip and knee do not show any fracture. Patient is able to stand while being assisted without any change in the degree of pain in his right leg, doubt occult fracture however patient is only able to stand with a significant amount of assistance, cannot raise the right leg off the bed for more than 1 second at a time, there is also some ataxia which appears to be new. I suspect the patient has had an acute ischemic stroke. He is well out of timeframe for TPA as his last known normal was sometime yesterday. CT scan of the head is negative for bleed. Patient has been given aspirin. Chest x-ray unremarkable. I did discuss my concerns for stroke and his inability to ambulate with Dr. Barrett who agrees to admit the patient to his service on [facility]. 07/23/17 22:47 Hypertension will continue to be followed by the hospitalist. (PRATIK DUFFY) - Vital Signs Vital signs: Temp Pulse Resp BP Pulse Ox 82 16 144/82 H 100 07/23/17 21:00 07/23/17 21:01 07/23/17 21:01 07/23/17 21:01 - Laboratory Laboratory results interpreted by me: 07/23/17 07/23/17 07/23/17 20:57 20:57 21:11 RBC 2.73 L Hgb 9.9 L Hct 29.0 L MCV 106 H MCH 36.3 H RDW 14.4 H Seg Neutrophils % 78.1 H Lymphocytes % 11.7 L Glucose 112 H Creatine Kinase 495 H CK-MB (CK-2) 5.71 H - Consults Dr. Barrett Reason for consultation: 07/23/17 22:04 Dr. Barrett was paged. 07/23/17 22:10 Dr. Barrett returned the phone call, the patient was discussed and he agrees to admit. (LUZ MARINA BARRON) Discharge <LUZ MARINA BARRON - Last Filed: 07/23/17 22:19> - Discharge Admitting Provider: Dayami barrett covering Unit Admitted: [facility] <PRATIK DUFFY - Last Filed: 07/23/17 22:48> - Discharge Clinical Impression: Acute right-sided weakness Fall Qualifiers: Encounter type: initial encounter Qualified Code(s): W19.XXXA - Unspecified fall, initial encounter HTN (hypertension) Qualifiers: Hypertension type: essential hypertension Qualified Code(s): I10 - Essential ( primary) hypertension Condition: Fair Disposition: ADMITTED INPATIENT Referrals: JEMIMA BELLA MD [Primary Care Provider] - Follow up as needed Scribe Attestation: 07/23/17 22:48 I personally performed the services described in the documentation, reviewed and edited the documentation which was dictated to the scribe in my presence, and it accurately records my words and actions. (PRATIK DUFFY) Scribe Documentation - Scribe Written by Scribe:: Irma Yu, 07/23/[id number] acting as scribe for :: Anneliese <LUZ MARINA BARRON - Last Filed: 07/23/17 22:19> ED NIH Stroke Scale - NIH Stroke Scale When completed:: Protocol *: 1. NIH scale should be completed with appropriate accompanying assessment tools. *: 2. The NIH should reflect what the patient is capable of doing and should not be coached by the clinician. 1a. Level of Consciousness: 0=Alert;keenly responsive -: 1=Drowsy -: 2=Obtunded -: 3=Coma/unresponsive or reflex to noxious stimuli. 1a. Responses: 0 1b. Orientation Questions: a. What month is it? -: b. How old are you? -: 0=Answers both questions correctly. -: 1=Answers one question correctly or patient is intubated or has orotracheal trauma. -: 2=Answers neither question correctly. 1b. Responses: 0 1c. Response to commands: a. Open and close eyes? -: b. Warehouse Picker and release hand? -: Credit is given despite weakness. Demonstration of task is permitted. Substitute command if hands cannot be used. -: 0=Performs both tasks correctly -: 1=Performs one task correctly -: 2=Performs neither task correctly 1c. Responses: 0 2. Gaze: Establish eye contact and instruct patient to "Follow my finger" -: 0=Normal -: 1=Partial gaze palsy. Gaze is abnormal in one or both eyes, but where forced deviation or total gaze paresis is not present. -: 2=Forced deviation or total gaze paresis. 2. Responses: 0 3. Visual Brasher: Sees fingers in all four quadrants. -: 0=No visual loss. -: 1=Partial hemianopsia. -: 2=Complete hemianopsia. -: 3=Bilateral hemianopsia (including Cortical blindness) 3. Responses: 0 4. Facial Movement: Instruct patient to: -: a. Show me your teeth -: b. Raise your eyebrows -: c. Close your eyes -: d. Smile -: 0=Normal symmetrical movement -: 1=Minor paralysis (flattened nasolabial fold, asymmetry on smiling). -: 2=Partial paralysis (total or near total paralysis of lower face). -: 3=Complete paralysis of upper and lower face 4. Responses: 0 5. Motor functions (left arm): Alternate sides and extend each arm with palms down (90 degrees if sitting or 45 degrees for supine). -: 0=No drift;limb holds for full 10 seconds. -: 1=Drift; limb holds but drifts down before full 10 seconds, but does not hit bed. -: 2=Some effort against gravity; limb cannot get to or maintain position. -: 3=No effort against gravity; limb falls. -: 4=No movement. -: UN=Amputation, joint fusion, explain in comments. 5. Responses (left arm): 0 5. Motor Functions (right arm): Alternate sides and extend each arm with palms down (90 degrees if sitting or 45 degrees for supine). -: 0=No drift;limb holds for full 10 seconds. -: 1=Drift; limb holds but drifts down before full 10 seconds, but does not hit bed. -: 2=Some effort against gravity; limb cannot get to or maintain position. -: 3=No effort against gravity; limb falls. -: 4=No movement. -: UN=Amputation, joint fusion, explain in comments. 5. Responses (right arm): 1 6. Motor Functions (left leg): With patient lying supine, alternate sides and extend each leg (30 degrees always while supine). -: 0=No drift, leg holds position for full 5 seconds -: 1=Drift; leg falls before full 5 seconds but does not hit bed. -: 2=Some effort against gravity, leg falls to bed but some effort against gravity. -: 3=No effort against gravity, leg falls to bed immediately. -: 4=No movement. -: UN=Amputation, joint fusion; explain in comments. 6. Responses (left leg): 0 6. Motor Functions (right leg): With patient lying supine, alternate sides and extend each leg (30 degrees always while supine). -: 0=No drift, leg holds position for full 5 seconds -: 1=Drift; leg falls before full 5 seconds but does not hit bed. -: 2=Some effort against gravity, leg falls to bed but some effort against gravity. -: 3=No effort against gravity, leg falls to bed immediately. -: 4=No movement. -: UN=Amputation, joint fusion; explain in comments. 6. Responses (right leg): 2 7. Limb Ataxia: With eyes open instruct patient to: -: a. "Touch your finger to your nose". -: b. "Touch your heel to your fabian" -: 0=Absent -: 1=Present in one limb. -: 2=Present in two limbs. -: UN=Amputation or joint fusion; explain in comments. 7. Responses: 1 7. If ataxia present choose as appropriate: Left arm, Right arm 8. Sensory: Test sensation using pinprick or noxious stimuli. Test as many body parts as possible. -: 0=Normal;no sensory loss -: 1=Mile to moderate sensory loss (patient feels pin prick but is less sharp on affected side). -: 2=Severe or total sensory loss. 8. Responses: 0 9. Best Language: Instruct patient to: -: a. "Describe what you see in this picture." -: b. "Name the items in this picture." -: c. "Read these sentences." -: 0=No aphasia, normal -: 1=Mild to moderate aphasia. -: 2=Severe aphasia -: 3=Mute, global aphasia, no usable speech or auditory comprehension. 9. Responses: 0 10. Articulation, Dysarthia: Instruct patient to: -: "Read these words" or "Repeat these words" -: 0=Normal -: 1=Mild to moderate; patient may slur some words but can be understood without difficulty. -: 2=Severe; patients speech so slurred as to be unintelligible in the absence of dysphasia. -: UN=Intubated or other physical barrier, explain in comments. 10. Responses: 0 11. Extinction or inattention: 0=No abnormality -: 1= Visual, tactile, auditory, spatial, or personal inattention or extinction to bilateral simulation in one or the sensory modalities. -: 2=Profound shazia-inattention or shazia-inattention to more than one modality; does not recognize own hand. 11. Responses: 0 Total Score: 4 <PRATIK DUFFY - Last Filed: 07/23/17 22:48>
--- NOTE | 2017-07-23 20:34 | RADIOLOGY REPORT (SQ) ---
EXAM DESCRIPTION: CT HEAD WITHOUT COMPLETED DATE/TIME: 07/23/2017 8:25 pm REASON FOR STUDY: fall, right sided weakness, unable to walk COMPARISON: None. TECHNIQUE: Axial images acquired through the brain without intravenous contrast. Images reviewed wi th bone, brain and subdural windows. Images stored on PACS. All CT scanners at this facility use dose modulation, iterative reconstruction, and/or weight based d osing when appropriate to reduce radiation dose to as low as reasonably achievable (ALARA). [facility]: Dose Right [facility]: CareDose [facility]: Dose Right [facility]: Teradose 4D [facility]: Nanophotonica RADIATION DOSE: CT Rad equipment meets quality standard of care and radiation dose reduction techniq ues were employed. CTDIvol: 64.6 mGy. DLP: 1680 mGy-cm.mGy. LIMITATIONS: None. FINDINGS: VENTRICLES: Prominent. CEREBRUM: No masses. No hemorrhage. No midline shift. Areas of low density in the white matter mos t likely due to chronic micro-vascular ischemic change. No evidence for acute infarction. Old right frontal infarct. CEREBELLUM: No masses. No hemorrhage. No alteration of density. No evidence for acute infarction. EXTRAAXIAL SPACES: Age-related involutional change. No fluid collections. No masses. ORBITS AND GLOBE: No intra- or extraconal masses. Normal contour of globe without masses. CALVARIUM: No fracture. PARANASAL SINUSES: No fluid or mucosal thickening. SOFT TISSUES: No mass or hematoma. OTHER: No other significant finding. IMPRESSION: CHRONIC CHANGES OF ATROPHY AND MICROVASCULAR ISCHEMIA. Old right frontal infarct. NO A CUTE PROCESS. EVIDENCE OF ACUTE STROKE: NO. TECHNICAL DOCUMENTATION: JOB ID: [id number] Quality ID # [id number]: Final reports with documentation of one or more dose reduction techniques (e.g., Au tomated exposure control, adjustment of the mA and/or kV according to patient size, use of iterative reconstruction technique) 2010 [employer]- All Rights Reserved
--- NOTE | 2017-07-23 20:53 | RADIOLOGY REPORT (SQ) ---
EXAM DESCRIPTION: HIP BILATERAL COMPLETED DATE/TIME: 07/23/2017 8:44 pm REASON FOR STUDY: fall, cant walk, laid on floor all night COMPARISON: None. NUMBER OF VIEWS: Two views. TECHNIQUE: AP pelvis and additional frog-leg view of the right and left hip. LIMITATIONS: None. FINDINGS: MINERALIZATION: Normal. PRIMARY HIP: No fracture or dislocation. No worrisome bone lesions. OPPOSITE HIP: No fracture or dislocation. No worrisome bone lesions. PUBIS AND ISCHIUM: No fracture. PELVIS: No fracture. SACRUM: No fracture or dislocation. No worrisome bone lesions. LOWER LUMBAR SPINE: No fracture or dislocation. No worrisome bone lesions. No significant disc disea se. SOFT TISSUES: No findings. OTHER: No other significant finding. IMPRESSION: No acute fracture dislocation. TECHNICAL DOCUMENTATION: JOB ID: [id number] [email or web address]- All Rights Reserved
--- NOTE | 2017-07-23 20:54 | RADIOLOGY REPORT (SQ) ---
EXAM DESCRIPTION: CHEST SINGLE VIEW COMPLETED DATE/TIME: 07/23/2017 8:44 pm REASON FOR STUDY: fall, cant walk, laid on floor all night COMPARISON: None. EXAM PARAMETERS: NUMBER OF VIEWS: One view. TECHNIQUE: Single frontal radiographic view of the chest acquired. RADIATION DOSE: NA LIMITATIONS: None. FINDINGS: LUNGS AND PLEURA: No opacities, masses or pneumothorax. No pleural effusion. MEDIASTINUM AND HILAR STRUCTURES: No masses. Contour normal. HEART AND VASCULAR STRUCTURES: Heart normal in size. Normal vasculature. BONES: No acute findings. HARDWARE: None in the chest. OTHER: No other significant finding. IMPRESSION: NO ACUTE RADIOGRAPHIC FINDING IN THE CHEST. TECHNICAL DOCUMENTATION: JOB ID: [id number] [employer]- All Rights Reserved
--- NOTE | 2017-07-23 20:55 | RADIOLOGY REPORT (SQ) ---
EXAM DESCRIPTION: KNEE RIGHT 3 VIEWS COMPLETED DATE/TIME: 07/23/2017 8:44 pm REASON FOR STUDY: fall, right sided weakness, unable to walk COMPARISON: None. NUMBER OF VIEWS: Three views. TECHNIQUE: AP, lateral, and sunrise patella radiographic images acquired of the right knee. LIMITATIONS: None. FINDINGS: MINERALIZATION: Osteopenia. BONES: No acute fracture or dislocation. No worrisome bone lesions. JOINT: No effusion. Generalize chondrocalcinosis. SOFT TISSUES: No soft tissue swelling. No radio-opaque foreign body. OTHER: No other significant finding. IMPRESSION: No acute fracture. TECHNICAL DOCUMENTATION: JOB ID: [id number] [employer]- All Rights Reserved
[2017-07-23 21:23] LABS: ABSOLUTE BASOPHILS # (AUTO) 0.1 10^3/uL (0.0-0.2); ABSOLUTE MONOCYTES (AUTO) 0.8 10^3/uL (0.1-1.4); ABSOLUTE NEUT (AUTO) 6.7 10^3/uL (1.7-8.2); BASOPHILS % (AUTO) 0.7 % (0-2); EOSINOPHILS % (AUTO) 0.1 % (0-6); HEMOGLOBIN 9.9 g/dL (13.5-17.0); LYMPHOCYTES % (AUTO) 11.7 % (13-45); MEAN CORPUSCULAR HEMOGLOBIN 36.3 pg (27.0-33.4); MEAN CORPUSCULAR HGB CONC 34.2 g/dL (32.0-36.0); MEAN CORPUSCULAR VOLUME 106 fl (80-97); MONOCYTES % (AUTO) 9.4 % (3-13); PLATELET COUNT 197 10^3/uL (150-450); RED BLOOD COUNT 2.73 10^6/uL (4.35-5.55); RED CELL DISTRIBUTION WIDTH 14.4 % (11.5-14.0); SEGMENTED NEUTROPHILS % (AUTO) 78.1 % (42-78); TOTAL CELLS COUNTED % (AUTO) 100 %; WHITE BLOOD COUNT 8.6 10^3/uL (4.0-10.5)
[2017-07-23 21:27] LABS: INTERNATIONAL RATION (INR) 0.95; PROTHROMBIN TIME 13.4 SEC (11.4-15.4)
[2017-07-23 21:28] LABS: ALANINE AMINOTRANSFERASE 33 U/L (21-72); ALKALINE PHOSPHATASE 40 U/L (38-126); ANION GAP 10 (5-19); ASPARTATE AMINO TRANSFERASE 53 U/L (17-59); BILIRUBIN,DIRECT 0.4 mg/dL (0.0-0.4); BILIRUBIN,TOTAL 0.9 mg/dL (0.2-1.3); BLOOD UREA NITROGEN 10 mg/dL (7-20); CALCIUM 9.4 mg/dL (8.4-10.2); CARBON DIOXIDE 27 mmol/L (22-30); CHLORIDE 103 mmol/L (98-107); CREATINE KINASE 495 U/L (55-170); GLUCOSE 112 mg/dL (75-110); POTASSIUM 3.7 mmol/L (3.6-5.0); SODIUM 140.3 mmol/L (137-145); TOTAL PROTEIN 7.5 g/dL (6.3-8.2)
[2017-07-23 21:28] LABS: PARTIAL THROMBOPLASTIN TIME 25.9 SEC (23.5-35.8)
[2017-07-23 21:35] LABS: CREATINE KINASE MB 5.71 ng/mL (<4.55)
[2017-07-23 21:38] LABS: TROPONIN I < 0.012 ng/mL
[2017-07-23] MEDS ORDERED: ASPIRIN 325 MG TABLET PO ONE (22:03)
[2017-07-23] MEDS ORDERED: MORPHINE SULFATE 10 MG/ML INJ IV ONE (22:06)
[2017-07-23] MEDS ORDERED: RINGERS SOLUTION,LACTATED 1,000 ML IV ONE (22:06)
--- NOTE | 2017-07-23 22:14 | EKG REPORT ---
SEVERITY:- ABNORMAL ECG - SINUS RHYTHM LEFT AXIS DEVIATION NONSPECIFIC T ABNORMALITIES, INFERIOR LEADS : Confirmed by: Griselda Baldwin 23-Jul-2017 22:13:47
[2017-07-23] MEDS ORDERED: ONDANSETRON HCL INJ/PF 4 MG/2 ML SDV ONE (22:22)
[2017-07-23] MEDS ORDERED: DOCUSATE SODIUM 100 MG CAPSULE PO PRN (22:24)
[2017-07-23] MEDS ORDERED: ACETAMINOPHEN 325 MG TABLET PO PRN (22:24)
[2017-07-23] MEDS ORDERED: ONDANSETRON HCL INJ/PF 4 MG/2 ML SDV IV ONE (22:25)
[2017-07-23] MEDS ORDERED: NORMAL SALINE 1000 ML 1,000 ML IV ONE (22:27)
[2017-07-23] MEDS ORDERED: THIAMINE HCL 100 MG, FOLIC ACID 1 MG in NORMAL SALINE 250 ML IV SCH (22:30)
[2017-07-23 23:08] LABS: ABSOLUTE RETICS # 0.048 10^6/uL (0.028-0.122); RETICULOCYTE COUNT (AUTO) 1.75 % (0.66-2.85)
[2017-07-23] MEDS ORDERED: THIAMINE HCL INJ 200 MG/2 ML VIAL IV PRN (23:08)
[2017-07-23] MEDS ORDERED: FOLIC ACID INJ 5 MG/1 ML 10 ML VIAL IV PRN (23:08)
[2017-07-23] MEDS ORDERED: THIAMINE HCL 100 MG, FOLIC ACID 1 MG in NORMAL SALINE 250 ML IV ONE (23:15)
[2017-07-23] MEDS ORDERED: ATORVASTATIN CALCIUM 80 MG TABLET PO ONE (23:15)
[2017-07-24 00:33] LABS: IRON(TIBC) 47.4 ug/dL (49-181)
[2017-07-24 01:58] LABS: FOLATE > 20.00 ng/mL (>2.76)
[2017-07-24 03:23] LABS: ABSOLUTE BASOPHILS # (AUTO) 0.1 10^3/uL (0.0-0.2); ABSOLUTE LYMPHOCYTES (AUTO) 1.4 10^3/uL (0.5-4.7); ABSOLUTE MONOCYTES (AUTO) 0.6 10^3/uL (0.1-1.4); ABSOLUTE NEUT (AUTO) 5.8 10^3/uL (1.7-8.2); BASOPHILS % (AUTO) 0.8 % (0-2); EOSINOPHILS % (AUTO) 0.1 % (0-6); HEMATOCRIT 33.2 % (37.9-51.0); HEMOGLOBIN 11.4 g/dL (13.5-17.0); LYMPHOCYTES % (AUTO) 17.2 % (13-45); MEAN CORPUSCULAR HEMOGLOBIN 36.1 pg (27.0-33.4); MEAN CORPUSCULAR HGB CONC 34.3 g/dL (32.0-36.0); MEAN CORPUSCULAR VOLUME 105 fl (80-97); PLATELET COUNT 234 10^3/uL (150-450); RED BLOOD COUNT 3.16 10^6/uL (4.35-5.55); SEGMENTED NEUTROPHILS % (AUTO) 73.9 % (42-78); TOTAL CELLS COUNTED % (AUTO) 100 %; WHITE BLOOD COUNT 7.9 10^3/uL (4.0-10.5)
[2017-07-24 03:54] LABS: ANION GAP 6 (5-19); BLOOD UREA NITROGEN 11 mg/dL (7-20); CALCIUM 8.7 mg/dL (8.4-10.2); CARBON DIOXIDE 29 mmol/L (22-30); CHLORIDE 106 mmol/L (98-107); CHOLESTEROL 153.06 mg/dL (0-200); CREATINE KINASE 1451 U/L (55-170); GLUCOSE 117 mg/dL (75-110); SODIUM 140.9 mmol/L (137-145); TRIGLYCERIDES 71 mg/dL (<150)
[2017-07-24 04:04] LABS: DIRECT LDL 97 mg/dL (<100)
[2017-07-24 04:05] LABS: CREATINE KINASE MB 12.7 ng/mL (<4.55); TROPONIN I 0.017 ng/mL
[2017-07-24 04:10] LABS: POTASSIUM 2.9 mmol/L (3.6-5.0)
[2017-07-24] MEDS ORDERED: POTASSIUM CHLORIDE 10 MEQ TABLET.SA PO ONE (04:38)
[2017-07-24] MEDS: POTASSI CL 20 MEQ/50 ML RIDER 20 MEQ/50 ML RTUPB IV SCH ×4 (05:20→20:19)
--- NOTE | 2017-07-24 06:10 | PDOC H&P ---
History of Present Illness Admission Date/PCP: 07/23/17 22:34 JEMIMA BELLA MD Patient complains of: Fall right-sided pain with weakness History of Present Illness: SHANIA BOURGEOIS is a 81 year old male with a past medical history of peripheral vascular disease, peripheral neuropathy, gait disorder, hypertension, right- sided carotid occlusion and daily alcohol use. Patient recalls falling to the floor at approximately 7 AM, not preceded by shortness of breath, chest pain dizziness lightheadedness or palpitations. Patient denies trauma to the head but complained of pain to his right side and was too weak to rise from the floor. He remained on the floor for approximately 7 hours, eventually found by family members and brought to the emergency room for evaluation. There is no evidence for confusion, slurred speech. Range of motion is limited by muscular pain. Patient denies recent change in medications. In the emergency room is found to be anemic and hypotensive with rhabdomyolysis. CT head is unremarkable he is referred to the hospitalist for admission. Past Medical History Cardiac Medical History: Reports: Hyperlipidema, Hypertension Denies: Myocardial Infarction Neurological Medical History: Reports: Other - Peripheral neuropathy Endocrine Medical History: Denies: Diabetes Mellitus Type 2 Musculoskeltal Medical History: Reports: Arthritis, Other - Peripheral vascular disease Psychiatric Medical History: Reports: Alcohol Dependency Past Surgical History Past Surgical History: Reports: Carotid Endarterectomy Social History Information Source: Patient, Relative, [facility] Records Lives with: Alone Smoking Status: Never Smoker Frequency of Alcohol Use: Heavy Hx Recreational Drug Use: No Drugs: None Hx Prescription Drug Abuse: No - Advance Directive Resuscitation Status: Full Code Family History Family History: Hypertension Parental Family History Reviewed: Yes Children Family History Reviewed: Yes Sibling(s) Family History Reviewed.: Yes Medication/Allergy Home Medications: Amlodipine Besylate [Norvasc 5 mg Tablet] 5 mg PO DAILY 02/27/17 Aspirin [Ecotrin 81 mg EC Tablet] 81 mg PO DAILY 02/27/17 Benazepril HCl [Lotensin 10 mg Tablet] 10 mg PO DAILY 02/27/17 Cyanocobalamin/Folic AC/Vit B6 [Folplex 2.2 Tablet] 1 tab PO DAILY 02/27/17 Ergocalciferol (Vitamin D2) [Drisdol 50,000 unit (1.25MG) Capsule] 50,000 unit PO FR@1000 02/27/17 Ezetimibe [Zetia 10 mg Tablet] 10 mg PO DAILY 02/27/17 Metoprolol Tartrate [Lopressor 50 mg Tablet] 50 mg PO Q12 02/27/17 Omeprazole 40 mg PO DAILY 02/27/17 Allergies/Adverse Reactions: No Known Allergies Allergy (Verified 07/23/17 20:02) Review of Systems Constitutional: PRESENT: weakness. ABSENT: anorexia, fatigue Eyes: ABSENT: visual disturbances Ears: ABSENT: hearing changes Cardiovascular: ABSENT: chest pain, dyspnea on exertion, edema, orthropnea, palpitations Respiratory: ABSENT: cough, hemoptysis Gastrointestinal: ABSENT: abdominal pain, constipation, diarrhea, hematemesis, hematochezia, nausea, vomiting Genitourinary: ABSENT: dysuria, hematuria Musculoskeletal: PRESENT: muscle weakness. ABSENT: joint swelling Integumentary: ABSENT: rash, wounds Neurological: PRESENT: as per HPI, abnormal gait, frequent falls, paresthesias, weakness. ABSENT: abnormal movements, abnormal speech, confusion, convulsions, dizziness, syncope, tingling, vertigo Psychiatric: ABSENT: anxiety, depression, homidical ideation, suicidal ideation Endocrine: ABSENT: cold intolerance, heat intolerance, polydipsia, polyuria Hematologic/Lymphatic: ABSENT: easy bleeding, easy bruising Physical Exam Vital Signs: Temp Pulse Resp BP Pulse Ox 97.7 F 77 16 101/62 95 07/24/17 04:15 07/24/17 04:15 07/24/17 04:15 07/24/17 04:15 07/24/17 04:15 Intake & Output 07/22/17 07/23/17 07/24/17 11:59 11:59 11:59 Weight 75 kg General appearance: PRESENT: no acute distress, cooperative Head exam: PRESENT: atraumatic, normocephalic Eye exam: PRESENT: conjunctiva pink, EOMI, PERRLA, other - Pinpoint pupils. ABSENT: scleral icterus Ear exam: PRESENT: normal external ear exam Mouth exam: PRESENT: moist, tongue midline Neck exam: PRESENT: other. ABSENT: carotid bruit, JVD, lymphadenopathy, thyromegaly Respiratory exam: PRESENT: clear to auscultation shaun. ABSENT: rales, rhonchi, wheezes Cardiovascular exam: PRESENT: RRR, systolic murmur. ABSENT: diastolic murmur, rubs Pulses: PRESENT: +1 pedal pulses bilateral Vascular exam: PRESENT: normal capillary refill GI/Abdominal exam: PRESENT: normal bowel sounds, soft. ABSENT: distended, guarding, mass, organolmegaly, rebound, tenderness Rectal exam: PRESENT: deferred Extremities exam: PRESENT: full ROM. ABSENT: calf tenderness, clubbing, pedal edema Musculoskeletal exam: PRESENT: other - Lower extremity muscular atrophy Neurological exam: PRESENT: alert, awake, oriented to person, oriented to place , oriented to time, oriented to situation, CN II-XII grossly intact. ABSENT: motor sensory deficit Psychiatric exam: PRESENT: appropriate affect, normal mood. ABSENT: homicidal ideation, suicidal ideation Skin exam: PRESENT: dry, intact, warm. ABSENT: cyanosis, rash Results Laboratory Results: 07/24/17 03:12 07/24/17 03:12 07/24/17 07/24/17 07/24/17 03:12 03:12 03:12 WBC 7.9 RBC 3.16 L Hgb 11.4 L Hct 33.2 L MCV 105 H MCH 36.1 H MCHC 34.3 RDW 14.0 Plt Count 234 Seg Neutrophils % 73.9 Lymphocytes % 17.2 Monocytes % 8.0 Eosinophils % 0.1 Basophils % 0.8 Absolute Neutrophils 5.8 Absolute Lymphocytes 1.4 Absolute Monocytes 0.6 Absolute Eosinophils 0.0 Absolute Basophils 0.1 Sodium 140.9 Potassium 2.9 L* Chloride 106 Carbon Dioxide 29 Anion Gap 6 BUN 11 Creatinine 0.79 Est GFR ( Amer) > 60 Est GFR (Non-Af Amer) > 60 Glucose 117 H Calcium 8.7 Magnesium 1.1 L* Triglycerides 71 Cholesterol 153.06 LDL Cholesterol Direct 97 VLDL Cholesterol 14.0 HDL Cholesterol 46 07/24/17 07/24/17 03:12 03:12 Creatine Kinase 1451 H CK-MB (CK-2) 12.70 H Troponin I 0.017 Impressions: Chest X-Ray 07/23/17 19:59 IMPRESSION: NO ACUTE RADIOGRAPHIC FINDING IN THE CHEST. Hip X-Ray 07/23/17 19:59 IMPRESSION: No acute fracture dislocation. Head CT 07/23/17 20:10 IMPRESSION: CHRONIC CHANGES OF ATROPHY AND MICROVASCULAR ISCHEMIA. Old right frontal infarct. NO ACUTE PROCESS. EVIDENCE OF ACUTE STROKE: NO. Knee X-Ray 07/23/17 20:10 IMPRESSION: No acute fracture. Assessment & Plan - Diagnosis (1) Rhabdomyolysis Is this a current diagnosis for this admission?: Yes Plan: Secondary to fall, IV fluid challenge reevaluate chemistry and total CK (2) Fall Qualifiers: Encounter type: initial encounter Qualified Code(s): W19.XXXA - Unspecified fall, initial encounter Is this a current diagnosis for this admission?: Yes Plan: Patient sustained a fall in April with extensive workup including carotid Doppler with known right-sided occlusion, unremarkable 2D echo. Will obtain orthostatic blood pressures given hypotension. I am concerned for alcohol dependence, hypomagnesemia and pinpoint pupils. Urine drug screen, magnesium and potassium ordered. Physical therapy evaluation. (3) Hypomagnesemia Is this a current diagnosis for this admission?: Yes Plan: Secondary to malnutrition likely alcohol dependence. Replete and reevaluate (4) Hypotension Is this a current diagnosis for this admission?: Yes Plan: Possibly orthostatic we will hold antihypertensives and reevaluate. Likely requires permissive hypertensive in the 150 systolic range for adequate perfusion given coronary artery occlusion. (5) Alcohol dependence Is this a current diagnosis for this admission?: Yes Plan: Thiamine, folate, Ativan as needed. Peripheral neuropathy may be Wernicke's related suggested by history and MCV greater than 105. (6) Pinpoint pupils Is this a current diagnosis for this admission?: Yes Plan: Concern for opiate contributing to fall. UDS pending (7) Unsteady gait Is this a current diagnosis for this admission?: Yes Plan: Physical therapy and education. - Time Time Spent: 50 to 70 Minutes - Inpatient Certification Medical Necessity: Need Close Monitoring Due to Risk of Patient Decompensation
[2017-07-24] MEDS: MAGNESIUM SULFATE/D5W 1 GM/100 ML RTUPB IV SCH ×2 (06:19→08:12)
[2017-07-24] MEDS: HEPARIN SOD (PORCINE) 5,000 UNIT/ML 1 ML SYRINGE SUBCUT SCH ×3 (07:32→22:35)
[2017-07-24] MEDS: NORMAL SALINE 1000 ML 1,000 ML IV SCH ×2 (07:37→13:00)
[2017-07-24] MEDS ORDERED: THIAMINE HCL 100 MG, FOLIC ACID 1 MG in NORMAL SALINE 250 ML IV SCH (10:00)
[2017-07-24] MEDS: ASPIRIN 325 MG TABLET, ENT COATED PO SCH (10:33)
[2017-07-24 10:51] LABS: CREATINE KINASE 2382 U/L (55-170)
[2017-07-24 10:58] LABS: CREATINE KINASE MB 14.6 ng/mL (<4.55); TROPONIN I 0.025 ng/mL
[2017-07-24 11:40] LABS: FOLATE > 20.00 ng/mL (>2.76)
[2017-07-24] MEDS ORDERED: METOPROLOL TARTRATE 50 MG TABLET PO ONE (13:30)
[2017-07-24 13:56] LABS: URINE AMPHETAMINES SCREEN NEGATIVE; URINE BARBITURATES SCREEN NEGATIVE; URINE BENZODIAZEPINES SCREEN NEGATIVE; URINE COCAINE SCREEN NEGATIVE; URINE MARIJUANA (THC) SCREEN NEGATIVE; URINE METHADONE SCREEN NEGATIVE; URINE PHENCYCLIDINE SCREEN NEGATIVE
[2017-07-24] MEDS ORDERED: NORMAL SALINE 1000 ML 1,000 ML IV ONE ×2 (14:01→19:40)
[2017-07-24] MEDS: LORAZEPAM INJ 2 MG/1 ML VIAL IV PRN (14:19)
--- NOTE | 2017-07-24 14:28 | PROGRESS NOTE E ---
Progress Note NAME: SHANIA BOURGEOIS : 1935 AGE: 81Y DATE: 07/24/2017 ROOM: 321 SUBJECTIVE: The patient is currently lying in bed. The patient states that he does feel better than when he came in. He still describes himself as weak. Patient denies any nausea, vomiting, diarrhea. No shortness of breath, dizziness, or chest pain. No fever or chills. No dizziness or presyncope episodes. The patient is quite candid with his drinking use. The patient states that he drinks about 16 ounces of vodka a day. The patient became quite tearful as he related to the loss of his in 2013. The patient does not voice any other concerns at this time. REVIEW OF SYSTEMS: Rest of the review of systems negative. MEDICATIONS: Have been reviewed. OBJECTIVE: GENERAL: The patient is an 81-year-old male who is awake, alert, and oriented to person, place, time, and situation. He is verbal, conversational, and does not appear to be in any acute distress. VITAL SIGNS: Temperature 98.9, pulse 84, respirations 18, blood pressure 127/44, oxygen saturation is 99% on room air. SKIN: Warm and dry. No rash. He is not diaphoretic. HEENT: Pupils are sluggish, quite constricted but not pinpoint. There is no evidence of JVP. CARDIOVASCULAR: Heart is regular. There is no rub. CHEST: Clear, symmetrical, unlabored. ABDOMEN: Soft, nontender, nondistended. BACK: No CVA tenderness or sacral edema. EXTREMITIES: No clubbing, cyanosis, or edema. PSYCHIATRIC: Appropriate affect. Pleasant mood. Understandably tearful. DIAGNOSTICS: Lab values are as follow: Hematology obtained on 07/24/2017: WBCs are 7.9, hemoglobin is 11.4, hematocrit is 33.2, platelet count is 234,000. Chemistry obtained on 07/24/2017: Sodium is 140, potassium 2.9, chloride is 106, carbon dioxide 29, BUN 11, creatinine is 0.79, glucose 117, calcium is 8.7, magnesium is 1.1, CK is 1451, triglycerides are 71, cholesterol 153, LDL is 97, VLDL is 14, HDL is 46. IMPRESSION AND PLAN: 1. ALCOHOL DEPENDENCY CONTINUOUS. Will continue to supplement B vitamins but transition to p.o. Will start CIWA protocol and follow. 2. HYPOMAGNESEMIA SECONDARY TO #1. Will replete and repeat magnesium at 2:00. 3. HYPOKALEMIA SECONDARY TO #1 AND #2. Will replete and repeat chemistry at 2:00 and follow accordingly. 4. RHABDOMYOLYSIS. This is secondary to the patient's fall. Will repeat in the a.m. and gently hydrate. 5. FALLS. Most likely this is a combination of the patient's alcohol intake, electrolyte anomalies, and so forth. Patient denies any syncope. Will have therapy evaluate the patient as well. 6. HYPERTENSION. Will continue the patient's home medications. 7. PERIPHERAL VASCULAR DISEASE. Currently awaiting vascular workup including MRI. 8. PERIPHERAL NEUROPATHY. Will continue the patient's home medications. DISPOSITION: The patient is a FULL CODE. Pending patient's symptomatology and diagnostic findings, will reevaluate in the a.m. Time spent on this followup including assessment, plan, physical examination, patient education, family meeting, and review of records is 35 minutes. DICTATING PHYSICIAN: SUKHI CALDWELL NP [id number] PHY#: [id number] ID: [id number] JOB#: [id number] ACCT: [id number] cc: >
--- NOTE | 2017-07-24 15:38 | RADIOLOGY REPORT (SQ) ---
EXAM DESCRIPTION: MRI HEAD WITHOUT COMPLETED DATE/TIME: 07/24/2017 3:25 pm REASON FOR STUDY: cva R weakness COMPARISON: CT dated 07/23/2017. TECHNIQUE: Multiplanar imaging includes non-contrasted T1, T2, FLAIR, and diffusion with ADC map seq uences. Images stored on PACS. LIMITATIONS: None. FINDINGS: ANATOMY: No anomalies. Normal vascular flow voids. Pituitary fossa normal. CSF SPACES: Atrophy induced prominence of ventricles and CSF spaces. CEREBRUM: High signal intensity lesions scattered throughout the white matter on FLAIR imaging with d istribution suggesting micro-vascular ischemic changes. Old infarct in the right frontal lobe. No e vidence of hemorrhage, mass, or extraaxial fluid collection. POSTERIOR FOSSA: No signal alteration. No hemorrhage. No edema, masses or mass effect. Internal kitty tory canals, cerebello-pontine angles, mastoids normal. DIFFUSION IMAGING: Negative for acute or sub-acute infarction. ORBITS: No masses. Globes normal. PARANASAL SINUSES: No fluid levels. Mucosa normal. OTHER: No other significant finding. IMPRESSION: ATROPHY AND CHRONIC MICRO-VASCULAR ISCHEMIC CHANGES. OLD INFARCT IN THE RIGHT FRONTAL L OBE. NO ACUTE FINDINGS. EVIDENCE OF ACUTE STROKE: NO. TECHNICAL DOCUMENTATION: JOB ID: [id number] [employer]- All Rights Reserved
[2017-07-24 16:52] LABS: ANION GAP 5 (5-19); BLOOD UREA NITROGEN 10 mg/dL (7-20); CALCIUM 8.4 mg/dL (8.4-10.2); CARBON DIOXIDE 33 mmol/L (22-30); CHLORIDE 103 mmol/L (98-107); GLUCOSE 135 mg/dL (75-110); MAGNESIUM 1.8 mg/dL (1.6-2.3)
[2017-07-24 17:02] LABS: POTASSIUM 2.9 mmol/L (3.6-5.0)
[2017-07-24 17:04] LABS: CREATINE KINASE MB 7.89 ng/mL (<4.55); TROPONIN I 0.03 ng/mL
[2017-07-24] MEDS: ACETAMINOPHEN 325 MG TABLET PO PRN (18:58)
[2017-07-24] MEDS: ATORVASTATIN CALCIUM 80 MG TABLET PO SCH (22:35)
[2017-07-24] MEDS: METOPROLOL TARTRATE 50 MG TABLET PO SCH (22:36)
[2017-07-25] MEDS: ACETAMINOPHEN 325 MG TABLET PO PRN ×2 (04:24→18:42)
[2017-07-25 06:24] LABS: ANION GAP 5 (5-19); BLOOD UREA NITROGEN 9 mg/dL (7-20); CALCIUM 8.3 mg/dL (8.4-10.2); CARBON DIOXIDE 27 mmol/L (22-30); CHLORIDE 108 mmol/L (98-107); GLUCOSE 107 mg/dL (75-110); POTASSIUM 3.4 mmol/L (3.6-5.0); SODIUM 139.8 mmol/L (137-145)
[2017-07-25] MEDS: LANSOPRAZOLE 30 MG TAB.RAP.DR PO SCH (06:59)
[2017-07-25] MEDS: HEPARIN SOD (PORCINE) 5,000 UNIT/ML 1 ML SYRINGE SUBCUT SCH ×2 (06:59→15:21)
--- NOTE | 2017-07-25 08:37 | PDOC PROGRESS REPORT ---
Subjective Progress Note for:: 07/25/17 Subjective:: The patient is seen on the rounds today. He appears to be slightly confused and very garbled speech. Discussed the need to get evaluated by physical therapy and because of recent events he probably needs to be in a nursing facility whether it is rehab if he still has any time left from previous rehab or assisted living and possibly a permanent placement. Long discussion about the need for drinking cessation of alcohol Reason For Visit: CVA, RIGHT SIDED WEAKNESS, FALL RHABDO, ANEMIA Physical Exam Vital Signs: Temp Pulse Resp BP Pulse Ox 99.7 F 82 16 133/57 H 99 07/25/17 07:38 07/25/17 07:38 07/25/17 07:38 07/25/17 07:38 07/25/17 07:38 Intake & Output 07/24/17 07/25/17 07/26/17 06:59 06:59 06:59 Intake Total 469 2437 Output Total 0 400 Balance 469 2037 Weight 74.2 kg 75.8 kg General appearance: PRESENT: mild distress Head exam: PRESENT: atraumatic Eye exam: PRESENT: conjunctiva pink Neck exam: PRESENT: carotid bruit Respiratory exam: PRESENT: rhonchi Cardiovascular exam: PRESENT: RRR, +S1, +S2 Pulses: PRESENT: +1 pedal pulses bilateral GI/Abdominal exam: PRESENT: soft Extremities exam: PRESENT: tenderness Musculoskeletal exam: PRESENT: tenderness Neurological exam: PRESENT: alert, reflexes normal, abnormal gait Additional comments: Garbled speech. Slight right facial droop Psychiatric exam: PRESENT: flat affect Results Laboratory Results: 07/24/17 03:12 07/25/17 05:16 07/24/17 07/24/17 07/25/17 09:35 16:30 05:16 Sodium 141.0 139.8 Potassium 2.9 L* 3.4 L Chloride 103 108 H Carbon Dioxide 33 H 27 Anion Gap 5 5 BUN 10 9 Creatinine 0.84 0.81 Est GFR ( Amer) > 60 > 60 Est GFR (Non-Af Amer) > 60 > 60 Glucose 135 H 107 Calcium 8.4 8.3 L Magnesium 1.8 Folate > 20.00 07/24/17 07/24/17 07/24/17 03:12 03:12 09:35 Creatine Kinase 1451 H 2382 H CK-MB (CK-2) 12.70 H Troponin I 0.017 07/24/17 07/24/17 07/24/17 09:35 16:30 16:30 Creatine Kinase 1564 H CK-MB (CK-2) 14.60 H 7.89 H Troponin I 0.025 0.030 Impressions: Chest X-Ray 07/23/17 19:59 IMPRESSION: NO ACUTE RADIOGRAPHIC FINDING IN THE CHEST. Hip X-Ray 07/23/17 19:59 IMPRESSION: No acute fracture dislocation. Head CT 07/23/17 20:10 IMPRESSION: CHRONIC CHANGES OF ATROPHY AND MICROVASCULAR ISCHEMIA. Old right frontal infarct. NO ACUTE PROCESS. EVIDENCE OF ACUTE STROKE: NO. Knee X-Ray 07/23/17 20:10 IMPRESSION: No acute fracture. Head MRI 07/23/17 22:25 IMPRESSION: ATROPHY AND CHRONIC MICRO-VASCULAR ISCHEMIC CHANGES. OLD INFARCT IN THE RIGHT FRONTAL LOBE. NO ACUTE FINDINGS. EVIDENCE OF ACUTE STROKE: NO. 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 The patient does have spinal stenosis (4) HTN (hypertension) Qualifiers: Hypertension type: essential hypertension Qualified Code(s): I10 - Essential (primary) hypertension Is this a current diagnosis for this admission?: Yes Plan: Continue current treatment (5) Hypomagnesemia Is this a current diagnosis for this admission?: Yes Plan: We will supplement magnesium and potassium (6) Hypokalemia Plan: Supplement potassium (7) Unsteady gait Is this a current diagnosis for this admission?: Yes Plan: We will need to discuss with the family about placement
[2017-07-25] MEDS ORDERED: MAGNESIUM OXIDE 400 MG TABLET PO ONE (08:45)
[2017-07-25] MEDS ORDERED: POTASSIUM CHLORIDE 10 MEQ TABLET.SA PO ONE (09:00)
[2017-07-25] MEDS: METOPROLOL TARTRATE 50 MG TABLET PO SCH (09:14)
[2017-07-25] MEDS: AMLODIPINE BESYLATE 5 MG TABLET PO SCH (09:14)
[2017-07-25] MEDS: FOLIC ACID 1 MG TABLET PO SCH (09:14)
[2017-07-25] MEDS: THIAMINE HCL 100 MG TABLET PO SCH (09:14)
[2017-07-25] MEDS: ASPIRIN 325 MG TABLET, ENT COATED PO SCH (09:15)
--- NOTE | 2017-07-25 15:43 | Physician Advisory Note ---
Physician Advisor ProgressNote .: [facility] medical [facility] for this patient. Physician Advisor Statement: Please consider documentin. Most likely cause of fall - spinal stenosis? alcoholism? peripheral neuropathy? Cerebrovascular atherosclerotic disease? ... 2. "Cerebrovascular atherosclerotic disease" (MRI = small vessel white matter ischemic dz in addition to old CVA) 3. Please continue to document "rhabdomyolysis" as Dx #1 in each note if you feel this was the Principal Dx. If this dx was ruled out, please state that. Thanks! CK
[2017-07-25] MEDS: MAGNESIUM OXIDE 400 MG TABLET PO SCH (17:52)
[2017-07-25] MEDS ORDERED: NORMAL SALINE 1000 ML 1,000 ML IV PRN ×2 (21:52→21:54)
[2017-07-25] MEDS ORDERED: POTASSIUM CHLORIDE 10 MEQ TABLET.SA PO SCH (22:00)
--- NOTE | 2017-07-25 23:07 | RADIOLOGY REPORT (SQ) ---
EXAM DESCRIPTION: CHEST SINGLE VIEW COMPLETED DATE/TIME: 07/25/2017 10:17 pm REASON FOR STUDY: fever, hypoxia COMPARISON: 07/23/2017 EXAM PARAMETERS: NUMBER OF VIEWS: One view. TECHNIQUE: Single frontal radiographic view of the chest acquired. RADIATION DOSE: NA LIMITATIONS: None. FINDINGS: LUNGS AND PLEURA: New small patchy airspace opacities are present in both lung bases. No pneumothorax or pleural effusion. MEDIASTINUM AND HILAR STRUCTURES: Stable. HEART AND VASCULAR STRUCTURES: Stable. BONES: No acute findings. HARDWARE: None in the chest. OTHER: No other significant finding. IMPRESSION: New small patchy airspace opacities are present in both lung bases. TECHNICAL DOCUMENTATION: JOB ID: [id number] [place]-72 2010 [employer]- All Rights Reserved
[2017-07-26] MEDS: METOPROLOL TARTRATE 50 MG TABLET PO SCH ×3 (00:09→21:35)
[2017-07-26] MEDS: LORAZEPAM INJ 2 MG/1 ML VIAL IV PRN (00:13)
[2017-07-26] MEDS: ATORVASTATIN CALCIUM 80 MG TABLET PO SCH ×2 (00:13→21:35)
[2017-07-26] MEDS: HEPARIN SOD (PORCINE) 5,000 UNIT/ML 1 ML SYRINGE SUBCUT SCH ×4 (00:14→21:35)
[2017-07-26 02:34] LABS: APPEARANCE,URINE CLEAR; BILIRUBIN,URINE NEGATIVE (NEGATIVE); COLOR,URINE YELLOW; GLUCOSE, URINE NEGATIVE (NEGATIVE); KETONES,URINE NEGATIVE (NEGATIVE); LEUKOCYTE ESTERASE,URINE NEGATIVE (NEGATIVE); NITRITE,URINE NEGATIVE (NEGATIVE); PROTEIN,URINE NEGATIVE (NEGATIVE); URINE SPECIFIC GRAVITY 1.008; UROBILINOGEN,URINE NEGATIVE mg/dL (<2.0)
[2017-07-26 06:05] LABS: ABSOLUTE BASOPHILS # (AUTO) 0.1 10^3/uL (0.0-0.2); ABSOLUTE MONOCYTES (AUTO) 1.5 10^3/uL (0.1-1.4); ABSOLUTE NEUT (AUTO) 7.4 10^3/uL (1.7-8.2); BASOPHILS % (AUTO) 0.7 % (0-2); EOSINOPHILS % (AUTO) 0.4 % (0-6); HEMOGLOBIN 11.9 g/dL (13.5-17.0); MEAN CORPUSCULAR HGB CONC 33.9 g/dL (32.0-36.0); MEAN CORPUSCULAR VOLUME 106 fl (80-97); MONOCYTES % (AUTO) 13.4 % (3-13); PLATELET COUNT 221 10^3/uL (150-450); RED BLOOD COUNT 3.29 10^6/uL (4.35-5.55); RED CELL DISTRIBUTION WIDTH 14.2 % (11.5-14.0); SEGMENTED NEUTROPHILS % (AUTO) 67.5 % (42-78); TOTAL CELLS COUNTED % (AUTO) 100 %
[2017-07-26 06:12] LABS: ALANINE AMINOTRANSFERASE 44 U/L (21-72); ALBUMIN 3.2 g/dL (3.5-5.0); ALKALINE PHOSPHATASE 42 U/L (38-126); ANION GAP 6 (5-19); ASPARTATE AMINO TRANSFERASE 62 U/L (17-59); BILIRUBIN,DIRECT 0.4 mg/dL (0.0-0.4); BLOOD UREA NITROGEN 9 mg/dL (7-20); CALCIUM 8.5 mg/dL (8.4-10.2); CARBON DIOXIDE 31 mmol/L (22-30); CHLORIDE 103 mmol/L (98-107); CREATINE KINASE 850 U/L (55-170); GLUCOSE 107 mg/dL (75-110); MAGNESIUM 1.7 mg/dL (1.6-2.3); SODIUM 140.4 mmol/L (137-145); TOTAL PROTEIN 6.3 g/dL (6.3-8.2)
[2017-07-26] MEDS ORDERED: POTASSIUM CHLORIDE 10 MEQ TABLET.SA PO ONE (06:25)
[2017-07-26] MEDS: LANSOPRAZOLE 30 MG TAB.RAP.DR PO SCH (06:34)
[2017-07-26] MEDS: MAGNESIUM SULFATE/D5W 1 GM/100 ML RTUPB IV SCH ×2 (07:08→09:17)
--- NOTE | 2017-07-26 09:10 | PDOC PROGRESS REPORT ---
Subjective Progress Note for:: 07/26/17 Subjective:: The patient seemed to be stable. He is still having some slurring of the speech and right facial droop. He has not been out of bed. He ran some fever last night and the cultures were sent. Reason For Visit: CVA, RIGHT SIDED WEAKNESS, FALL RHABDO, ANEMIA Physical Exam Vital Signs: Temp Pulse Resp BP Pulse Ox 98.5 F 81 19 145/60 H 99 07/26/17 07:50 07/26/17 07:50 07/26/17 07:50 07/26/17 07:50 07/26/17 07:50 Intake & Output 07/25/17 07/26/17 07/27/17 06:59 06:59 06:59 Intake Total 2437 1532 Output Total 400 400 Balance 2037 1132 Weight 75.8 kg 76.9 kg General appearance: PRESENT: mild distress Head exam: PRESENT: atraumatic Eye exam: PRESENT: conjunctiva pink Neck exam: PRESENT: carotid bruit. ABSENT: JVD Respiratory exam: PRESENT: rhonchi Cardiovascular exam: PRESENT: RRR, +S1, +S2 GI/Abdominal exam: PRESENT: normal bowel sounds, soft Extremities exam: PRESENT: tenderness Musculoskeletal exam: PRESENT: tenderness Neurological exam: PRESENT: alert, awake Additional comments: Mild right facial droop. Slurring of the speech and right upper and lower extremity weakness Results Laboratory Results: 07/26/17 05:05 07/26/17 05:05 07/26/17 07/26/17 07/26/17 00:15 05:05 05:05 WBC 11.0 H RBC 3.29 L Hgb 11.9 L Hct 35.0 L MCV 106 H MCH 36.0 H MCHC 33.9 RDW 14.2 H Plt Count 221 Seg Neutrophils % 67.5 Lymphocytes % 18.0 Monocytes % 13.4 H Eosinophils % 0.4 Basophils % 0.7 Absolute Neutrophils 7.4 Absolute Lymphocytes 2.0 Absolute Monocytes 1.5 H Absolute Eosinophils 0.0 Absolute Basophils 0.1 Sodium 140.4 Potassium 3.0 L* Chloride 103 Carbon Dioxide 31 H Anion Gap 6 BUN 9 Creatinine 0.78 Est GFR ( Amer) > 60 Est GFR (Non-Af Amer) > 60 Glucose 107 Calcium 8.5 Magnesium 1.7 Total Bilirubin 1.0 AST 62 H ALT 44 Alkaline Phosphatase 42 Total Protein 6.3 Albumin 3.2 L Urine Color YELLOW Urine Appearance CLEAR Urine pH 5.0 Ur Specific [place] 1.008 Urine Protein NEGATIVE Urine Glucose (UA) NEGATIVE Urine Ketones NEGATIVE Urine Blood SMALL H Urine Nitrite NEGATIVE Ur Leukocyte Esterase NEGATIVE Urine WBC (Auto) 0 07/24/17 07/24/17 07/24/17 03:12 03:12 09:35 Creatine Kinase 1451 H 2382 H CK-MB (CK-2) 12.70 H Troponin I 0.017 07/24/17 07/24/17 07/24/17 09:35 16:30 16:30 Creatine Kinase 1564 H CK-MB (CK-2) 14.60 H 7.89 H Troponin I 0.025 0.030 07/26/17 05:05 Creatine Kinase 850 H CK-MB (CK-2) Troponin I Impressions: Hip X-Ray 07/23/17 19:59 IMPRESSION: No acute fracture dislocation. Head CT 07/23/17 20:10 IMPRESSION: CHRONIC CHANGES OF ATROPHY AND MICROVASCULAR ISCHEMIA. Old right frontal infarct. NO ACUTE PROCESS. EVIDENCE OF ACUTE STROKE: NO. Knee X-Ray 07/23/17 20:10 IMPRESSION: No acute fracture. Head MRI 07/23/17 22:25 IMPRESSION: ATROPHY AND CHRONIC MICRO-VASCULAR ISCHEMIC CHANGES. OLD INFARCT IN THE RIGHT FRONTAL LOBE. NO ACUTE FINDINGS. EVIDENCE OF ACUTE STROKE: NO. Chest X-Ray 07/25/17 00:00 IMPRESSION: New small patchy airspace opacities are present in both lung bases. 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 (3) Fall Qualifiers: Encounter type: initial encounter Qualified Code(s): W19.XXXA - Unspecified fall, initial encounter Is this a current diagnosis for this admission?: Yes Plan: No fractures so we will start working with physical therapy. The patient does have spinal stenosis (4) HTN (hypertension) Qualifiers: Hypertension type: essential hypertension Qualified Code(s): I10 - Essential (primary) hypertension Is this a current diagnosis for this admission?: Yes Plan: Continue current treatment (5) Hypomagnesemia Is this a current diagnosis for this admission?: Yes (7) Unsteady gait Is this a current diagnosis for this admission?: Yes (8) Rhabdomyolysis Is this a current diagnosis for this admission?: Yes (9) PAD (peripheral artery disease) Is this a current diagnosis for this admission?: Yes Plan: We will continue the same treatment (10) TIA (transient ischemic attack) Qualifiers: Transient cerebral ischemia type: carotid artery syndrome (hemispheric) Qualified Code(s): G45.1 - Carotid artery syndrome (hemispheric) Is this a current diagnosis for this admission?: Yes Plan: We will obtain another MRI (11) Small vessel disease, cerebrovascular Is this a current diagnosis for this admission?: Yes Plan: Possible cause of fall, dementia (12) Spinal stenosis Is this a current diagnosis for this admission?: Yes Plan: Possible cause of the fall and unsteady gait. The patient has undergone a previous extensive workup. He will require physical therapy twice a day at a rehab center
[2017-07-26] MEDS: FOLIC ACID 1 MG TABLET PO SCH (09:17)
[2017-07-26] MEDS: POTASSIUM CHLORIDE 10 MEQ TABLET.SA PO SCH ×2 (09:18→21:35)
[2017-07-26] MEDS: THIAMINE HCL 100 MG TABLET PO SCH (09:18)
[2017-07-26] MEDS: AMLODIPINE BESYLATE 5 MG TABLET PO SCH (09:18)
[2017-07-26] MEDS: ASPIRIN 325 MG TABLET, ENT COATED PO SCH (09:18)
[2017-07-26] MEDS: MAGNESIUM OXIDE 400 MG TABLET PO SCH ×2 (09:18→17:01)
[2017-07-26] MEDS ORDERED: AZITHROMYCIN 250 MG TABLET PO ONE (11:00)
[2017-07-26] MEDS: CYANOCOBALAMIN (VITAMIN B-12) 1,000 MCG TABLET PO SCH (12:49)
[2017-07-26] MEDS: ACETAMINOPHEN 325 MG TABLET PO PRN ×2 (16:55→22:27)
--- NOTE | 2017-07-26 18:32 | RADIOLOGY REPORT (SQ) ---
EXAM DESCRIPTION: MRI HEAD WITHOUT COMPLETED DATE/TIME: 07/26/2017 6:17 pm REASON FOR STUDY: Right facial droop, right upper and lower extremit COMPARISON: 07/26/2017 TECHNIQUE: Multiplanar imaging includes non-contrasted T1, T2, FLAIR, and diffusion with ADC map seq uences. Images stored on PACS. LIMITATIONS: None. FINDINGS: ANATOMY: No anomalies. Normal vascular flow voids. Pituitary fossa normal. CSF SPACES: Atrophy induced prominence of ventricles and CSF spaces. CEREBRUM: High signal intensity lesions scattered throughout the white matter on FLAIR imaging with d istribution suggesting micro-vascular ischemic changes. No evidence of hemorrhage, mass, or extraaxi al fluid collection. 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 POSTERIOR FOSSA: No signal alteration. No hemorrhage. No edema, masses or mass effect. Internal kitty tory canals, cerebello-pontine angles, mastoids normal. DIFFUSION IMAGING: Negative for acute or sub-acute infarction. ORBITS: No masses. Globes normal. PARANASAL SINUSES: No fluid levels. Mucosa normal. OTHER: No other significant finding. IMPRESSION: No significant interval change when compared to the previous study. ATROPHY AND CHRONIC MICRO-VASCULAR ISCHEMIC CHANGES. Area of prior infarction in the right frontal lobe appears stable. Other findings as noted above. EVIDENCE OF ACUTE STROKE: NO. TECHNICAL DOCUMENTATION: JOB ID: [id number]- All Rights Reserved
[2017-07-27 05:53] LABS: ABSOLUTE BASOPHILS # (AUTO) 0.1 10^3/uL (0.0-0.2); ABSOLUTE EOSINOPHILS # (AUTO) 0.2 10^3/uL (0.0-0.6); ABSOLUTE LYMPHOCYTES (AUTO) 1.3 10^3/uL (0.5-4.7); BASOPHILS % (AUTO) 1.2 % (0-2); EOSINOPHILS % (AUTO) 2.2 % (0-6); HEMATOCRIT 34.3 % (37.9-51.0); HEMOGLOBIN 11.7 g/dL (13.5-17.0); LYMPHOCYTES % (AUTO) 17.3 % (13-45); MEAN CORPUSCULAR HEMOGLOBIN 36.2 pg (27.0-33.4); MEAN CORPUSCULAR HGB CONC 34.1 g/dL (32.0-36.0); MEAN CORPUSCULAR VOLUME 106 fl (80-97); MONOCYTES % (AUTO) 13.6 % (3-13); PLATELET COUNT 214 10^3/uL (150-450); RED BLOOD COUNT 3.23 10^6/uL (4.35-5.55); RED CELL DISTRIBUTION WIDTH 13.9 % (11.5-14.0); SEGMENTED NEUTROPHILS % (AUTO) 65.7 % (42-78); TOTAL CELLS COUNTED % (AUTO) 100 %; WHITE BLOOD COUNT 7.7 10^3/uL (4.0-10.5)
[2017-07-27 06:07] LABS: ALANINE AMINOTRANSFERASE 33 U/L (21-72); ALKALINE PHOSPHATASE 44 U/L (38-126); ANION GAP 6 (5-19); ASPARTATE AMINO TRANSFERASE 73 U/L (17-59); BILIRUBIN,DIRECT 0.4 mg/dL (0.0-0.4); BILIRUBIN,TOTAL 0.7 mg/dL (0.2-1.3); BLOOD UREA NITROGEN 8 mg/dL (7-20); CALCIUM 8.7 mg/dL (8.4-10.2); CARBON DIOXIDE 29 mmol/L (22-30); CHLORIDE 105 mmol/L (98-107); GLUCOSE 110 mg/dL (75-110); MAGNESIUM 2.2 mg/dL (1.6-2.3); POTASSIUM 3.9 mmol/L (3.6-5.0); SODIUM 140.3 mmol/L (137-145); TOTAL PROTEIN 6.2 g/dL (6.3-8.2)
[2017-07-27] MEDS: HEPARIN SOD (PORCINE) 5,000 UNIT/ML 1 ML SYRINGE SUBCUT SCH ×2 (06:17→14:34)
[2017-07-27] MEDS: LANSOPRAZOLE 30 MG TAB.RAP.DR PO SCH (06:17)
[2017-07-27] MEDS ORDERED: ERGOCALCIFEROL (VITAMIN D2) 50000 UNIT (1.25 MG) CAPSULE PO SCH (10:00)
[2017-07-27] MEDS ORDERED: AZITHROMYCIN 250 MG TABLET PO SCH (10:00)
[2017-07-27] MEDS: FOLIC ACID 1 MG TABLET PO SCH (10:31)
[2017-07-27] MEDS: METOPROLOL TARTRATE 50 MG TABLET PO SCH (10:31)
[2017-07-27] MEDS: THIAMINE HCL 100 MG TABLET PO SCH (10:31)
[2017-07-27] MEDS: AMLODIPINE BESYLATE 5 MG TABLET PO SCH (10:33)
[2017-07-27] MEDS: ASPIRIN 325 MG TABLET, ENT COATED PO SCH (10:33)
[2017-07-27] MEDS: POTASSIUM CHLORIDE 10 MEQ TABLET.SA PO SCH (10:33)
[2017-07-27] MEDS: MAGNESIUM OXIDE 400 MG TABLET PO SCH (10:33)
[2017-07-27] MEDS: CYANOCOBALAMIN (VITAMIN B-12) 1,000 MCG TABLET PO SCH (11:52)
[2017-07-27] MEDS: ACETAMINOPHEN 325 MG TABLET PO PRN (11:53)
--- NOTE | 2017-07-27 13:03 | PDOC TRANSFER SUMMARY ---
General - Admit/Disc Date/PCP Admission Date/Primary Care Provider: 07/23/17 22:34 JEMIMA BELLA MD Discharge Date: 07/27/17 - Discharge Diagnosis (1) Rhabdomyolysis Is this a current diagnosis for this admission?: Yes Summary: Improved and stable (2) Acute right-sided weakness Is this a current diagnosis for this admission?: Yes Summary: Patient had workup for acute CVA. No acute findings are found via MRI's CT scan. 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 Continues to have some acute right-sided weakness requiring skilled facility for rehab (3) Fall Is this a current diagnosis for this admission?: Yes Summary: Continues to be a high fall risk. Patient fell at home and did have rhabdomyolysis. He will need physical therapy OT for strengthening outpatient rehab. (4) HTN (hypertension) Is this a current diagnosis for this admission?: Yes (5) Hypomagnesemia Is this a current diagnosis for this admission?: Yes Summary: Replaced stable (6) Hypotension Is this a current diagnosis for this admission?: Yes Summary: Improved (7) Alcohol dependence Is this a current diagnosis for this admission?: Yes Summary: Patient was monitored for alcohol withdrawals and was given. Medication as needed. Encourage alcohol cessation - Additional Information Resuscitation Status: Full Code Discharge Diet: As Tolerated Discharge Activity: Activity As Tolerated, Supervised Activity, Weigh Daily Prescriptions: Acetaminophen [Non-Aspirin] 325 mg PO Q6HWA PRN #30 tablet PRN Reason: Amlodipine Besylate [Norvasc 5 mg Tablet] 5 mg PO DAILY #30 tablet Aspirin [Ecotrin 325 mg EC Tablet] 325 mg PO DAILY #30 tabec Atorvastatin Calcium [Lipitor 80 mg Tablet] 80 mg PO QHS #30 tablet Azithromycin [Zithromax 250 mg Tablet] 250 mg PO DAILY #10 tablet Benazepril HCl [Lotensin 10 mg Tablet] 10 mg PO DAILY 30 Days tablet Colesevelam HCl [Welchol 625 mg Tablet] 3 tab PO BID 30 Days tablet Metoprolol Tartrate [Lopressor 50 mg Tablet] 50 mg PO Q12 30 Days tablet Omeprazole 40 mg PO DAILY 30 Days capsule. Potassium Chloride [Klor-Con 10 Meq Tablet.sa] 20 meq PO DAILY 30 Days tablet.sa Home Medications: Amlodipine Besylate [Norvasc 5 mg Tablet] 5 mg PO DAILY 07/24/17 Ergocalciferol (Vitamin D2) [Drisdol 50,000 unit (1.25MG) Capsule] 50,000 unit PO FR@1000 07/24/17 Acetaminophen [Non-Aspirin] 325 mg PO Q6HWA PRN #30 tablet 07/27/17 Amlodipine Besylate [Norvasc 5 mg Tablet] 5 mg PO DAILY #30 tablet 07/27/17 Aspirin [Ecotrin 325 mg EC Tablet] 325 mg PO DAILY #30 tabec 07/27/17 Atorvastatin Calcium [Lipitor 80 mg Tablet] 80 mg PO QHS #30 tablet 07/27/17 Azithromycin [Zithromax 250 mg Tablet] 250 mg PO DAILY #10 tablet 07/27/17 Benazepril HCl [Lotensin 10 mg Tablet] 10 mg PO DAILY 30 Days tablet 07/27/17 Colesevelam HCl [Welchol 625 mg Tablet] 3 tab PO BID 30 Days tablet 07/27/17 Cyanocobalamin (Vitamin B-12) [Vitamin B-12 1000 mcg Tablet] 1,000 mcg PO NOON tablet 07/27/17 Docusate Sodium [Colace 100 mg Capsule] 100 mg PO BIDP PRN capsule 07/27/17 Metoprolol Tartrate [Lopressor 50 mg Tablet] 50 mg PO Q12 30 Days tablet Omeprazole 40 mg PO DAILY 30 Days capsule. 07/27/17 Potassium Chloride [Klor-Con 10 Meq Tablet.sa] 20 meq PO DAILY 30 Days tablet.sa 07/27/17 Thiamine HCl [Thiamine 100 mg Tablet] 100 mg PO DAILY tablet 07/27/17 History of Present Illness Admission Date/PCP: 07/23/17 22:34 JEMIMA BELLA MD Hospital Course Hospital Course: 81-year-old male past medical history of peripheral vascular disease, peripheral neuropathy, gait disorder, right-sided carotid occlusion, daily alcohol use, hypertension, patient had recent falls to the floor floor and was there approximately 7 8 hours until found by family member. Brought to the emergency room was found to have some rhabdomyoma lysis, hyper tension, and anemic. He developed some acute right sided weakness, slurred speech and was being worked up for an acute CVA which was negative. Patient continues to remain very frail and needed rehab or weakness in pinch strengthening. His rhabdomyolysis secondary to fall improved, patient had replacement of his electrolytes, and was monitored for alcohol withdrawals. Hypotension has resolved. Patient is safe and stable to be [facility]. Follow-up with PCP. Patient also had preliminary positive blood cultures and was given a prescription for azithromycin outpatient for 10 more days. Physical Exam Vital Signs: Temp Pulse Resp BP Pulse Ox 99.2 F 69 20 125/50 L 97 07/27/17 11:23 07/27/17 11:23 07/27/17 11:23 07/27/17 11:23 07/27/17 11:23 Intake & Output 07/26/17 07/27/17 07/28/17 06:59 06:59 06:59 Intake Total 1532 2537 695 Output Total 400 325 100 Balance 1132 2212 595 Weight 76.9 kg 81.3 kg General appearance: PRESENT: no acute distress, well-developed, well-nourished Head exam: PRESENT: atraumatic, normocephalic Eye exam: PRESENT: conjunctiva pink, EOMI, PERRLA. ABSENT: scleral icterus Ear exam: PRESENT: normal external ear exam Mouth exam: PRESENT: moist, tongue midline Neck exam: ABSENT: carotid bruit, JVD, lymphadenopathy, thyromegaly Respiratory exam: PRESENT: clear to auscultation shaun. ABSENT: rales, rhonchi, wheezes Cardiovascular exam: PRESENT: RRR. ABSENT: diastolic murmur, rubs, systolic murmur Pulses: PRESENT: normal dorsalis pedis pul Vascular exam: PRESENT: normal capillary refill GI/Abdominal exam: PRESENT: normal bowel sounds, soft. ABSENT: distended, guarding, mass, organolmegaly, rebound, tenderness Rectal exam: PRESENT: deferred Extremities exam: PRESENT: full ROM. ABSENT: calf tenderness, clubbing, pedal edema Musculoskeletal exam: PRESENT: other - Generalized weakness especially right side. ABSENT: ambulatory Neurological exam: PRESENT: alert, awake, oriented to person, oriented to place , oriented to time, oriented to situation, CN II-XII grossly intact. ABSENT: motor sensory deficit Psychiatric exam: PRESENT: appropriate affect, normal mood. ABSENT: homicidal ideation, suicidal ideation Skin exam: PRESENT: dry, intact, warm. ABSENT: cyanosis, rash Results Laboratory Results: 07/27/17 05:26 07/27/17 05:26 07/27/17 07/27/17 05:26 05:26 WBC 7.7 RBC 3.23 L Hgb 11.7 L Hct 34.3 L MCV 106 H MCH 36.2 H MCHC 34.1 RDW 13.9 Plt Count 214 Seg Neutrophils % 65.7 Lymphocytes % 17.3 Monocytes % 13.6 H Eosinophils % 2.2 Basophils % 1.2 Absolute Neutrophils 5.0 Absolute Lymphocytes 1.3 Absolute Monocytes 1.0 Absolute Eosinophils 0.2 Absolute Basophils 0.1 Sodium 140.3 Potassium 3.9 Chloride 105 Carbon Dioxide 29 Anion Gap 6 BUN 8 Creatinine 0.70 Est GFR ( Amer) > 60 Est GFR (Non-Af Amer) > 60 Glucose 110 Calcium 8.7 Magnesium 2.2 Total Bilirubin 0.7 AST 73 H ALT 33 Alkaline Phosphatase 44 Total Protein 6.2 L Albumin 3.0 L 07/24/17 07/24/17 07/24/17 03:12 03:12 09:35 Creatine Kinase 1451 H 2382 H CK-MB (CK-2) 12.70 H Troponin I 0.017 07/24/17 07/24/17 07/24/17 09:35 16:30 16:30 Creatine Kinase 1564 H CK-MB (CK-2) 14.60 H 7.89 H Troponin I 0.025 0.030 07/26/17 05:05 Creatine Kinase 850 H CK-MB (CK-2) Troponin I Impressions: Hip X-Ray 07/23/17 19:59 IMPRESSION: No acute fracture dislocation. Head CT 07/23/17 20:10 IMPRESSION: CHRONIC CHANGES OF ATROPHY AND MICROVASCULAR ISCHEMIA. Old right frontal infarct. NO ACUTE PROCESS. EVIDENCE OF ACUTE STROKE: NO. Knee X-Ray 07/23/17 20:10 IMPRESSION: No acute fracture. Chest X-Ray 07/25/17 00:00 IMPRESSION: New small patchy airspace opacities are present in both lung bases. Head MRI 07/26/17 00:00 IMPRESSION: No significant interval change when compared to the previous study. ATROPHY AND CHRONIC MICRO-VASCULAR ISCHEMIC CHANGES. Area of prior infarction in the right frontal lobe appears stable. Other findings as noted above. EVIDENCE OF ACUTE STROKE: NO. Transfer Plan - Time Spent with Patient Time spent with patient: Less than 30 Minutes Plan Discharge Plan: Discharge to jail facility follow-up with primary care in 1-2 weeks. Time Spent: Less than 30 Minutes
[2017-07-27 15:27] VITALS: BP 124/74
== END 2017-07-27 17:00 | DRG 558 ==
LOC: ER 19:47 → EH 22:34 → 3W 07-24 00:57
PROVIDERS: ADMIT Internal Medicine; ATTEND Internal Medicine
DX: M62.82 Rhabdomyolysis (principal); E46 Unspecified protein-calorie malnutrition; G81.91 Hemiplegia, unspecified affecting right dominant side; I67.89 Other cerebrovascular disease; R29.810 Facial weakness; E83.42 Hypomagnesemia; E87.6 Hypokalemia; R26.81 Unsteadiness on feet; F10.20 Alcohol dependence, uncomplicated; D64.9 Anemia, unspecified; I73.9 Peripheral vascular disease, unspecified; I95.9 Hypotension, unspecified; I10 Essential (primary) hypertension; E78.5 Hyperlipidemia, unspecified; S30.820A Blister (nonthermal) of lower back and pelvis, initial encounter; L53.9 Erythematous condition, unspecified; M79.604 Pain in right leg; G62.9 Polyneuropathy, unspecified; M48.00 Spinal stenosis, site unspecified; W19.XXXA Unspecified fall, initial encounter; Y93.9 Activity, unspecified; Y92.009 Unspecified place in unspecified non-institutional (private) residence as the place of occurrence of the external cause; Y90.9 Presence of alcohol in blood, level not specified; Z60.2 Problems related to living alone; Z79.82 Long term (current) use of aspirin; Z79.899 Other long term (current) drug therapy
CPT/HCPCS: 36415; 70450; 70551; 71010; 73522; 80048; 80053; 80061; 80307; 81001; 82550; 82553; 82607; 82728; 82746; 83540; 83550; 83735; 84484; 85025; 85045; 85610; 85730; 87040; 87077; 87086; 87186; 93005; 93010; 96365; 96375; 99285; G8978-GP; G8979-GP; G8987-GO; G8988-GO; G8996-GN; G8997-GN; G8998-GN; J1644; J2060; J2270; J2405; J3411; J3475; J3480; J3490; J7030; J7050; J7120

== ENCOUNTER → 2019-04-09 | Outpatient (CLI) | payer MEDICARE ==
[2019-04-09 10:29] LABS: ABSOLUTE BASOPHILS # (AUTO) 0.1 10^3/uL (0.0-0.2); ABSOLUTE EOSINOPHILS # (AUTO) 0.7 10^3/uL (0.0-0.6); ABSOLUTE LYMPHOCYTES (AUTO) 1.7 10^3/uL (0.5-4.7); ABSOLUTE MONOCYTES (AUTO) 0.8 10^3/uL (0.1-1.4); ABSOLUTE NEUT (AUTO) 5.1 10^3/uL (1.7-8.2); BASOPHILS % (AUTO) 1.2 % (0-2); EOSINOPHILS % (AUTO) 8.2 % (0-6); HEMATOCRIT 31.8 % (37.9-51.0); HEMOGLOBIN 10.8 g/dL (13.5-17.0); LYMPHOCYTES % (AUTO) 20.1 % (13-45); MEAN CORPUSCULAR HEMOGLOBIN 32.7 pg (27.0-33.4); MEAN CORPUSCULAR HGB CONC 33.9 g/dL (32.0-36.0); MEAN CORPUSCULAR VOLUME 96 fl (80-97); MONOCYTES % (AUTO) 9.8 % (3-13); PLATELET COUNT 292 10^3/uL (150-450); RED CELL DISTRIBUTION WIDTH 13.6 % (11.5-14.0); SEGMENTED NEUTROPHILS % (AUTO) 60.7 % (42-78); TOTAL CELLS COUNTED % (AUTO) 100 %; WHITE BLOOD COUNT 8.4 10^3/uL (4.0-10.5)
[2019-04-09 10:50] LABS: ALBUMIN 4.6 g/dL (3.5-5.0); ALKALINE PHOSPHATASE 60 U/L (38-126); ANION GAP 9 (5-19); ASPARTATE AMINO TRANSFERASE 19 U/L (17-59); BILIRUBIN,DIRECT 0.1 mg/dL (0.0-0.4); BILIRUBIN,TOTAL 0.3 mg/dL (0.2-1.3); BLOOD UREA NITROGEN 38 mg/dL (7-20); CALCIUM 10.1 mg/dL (8.4-10.2); CARBON DIOXIDE 26 mmol/L (22-30); CHLORIDE 100 mmol/L (98-107); CHOLESTEROL 202.21 mg/dL (0-200); GLUCOSE 93 mg/dL (75-110); TOTAL PROTEIN 8.1 g/dL (6.3-8.2); TRIGLYCERIDES 297 mg/dL (<150)
[2019-04-09 11:01] LABS: DIRECT LDL 128 mg/dL (<100)
[2019-04-09 11:15] LABS: VLDL CHOLESTEROL 59.4 mg/dL (10-31)
== END ==
LOC: OD 09:47
PROVIDERS: ATTEND Internal Medicine
DX: I73.9 Peripheral vascular disease, unspecified (principal); E78.5 Hyperlipidemia, unspecified; R53.83 Other fatigue
CPT/HCPCS: 36415; 80053; 80061; 84443; 85025

== ENCOUNTER → 2019-04-14 | Outpatient (CLI) | payer MEDICARE | LOC: OD 09:27 | PROVIDERS: ATTEND Internal Medicine | DX: E87.5 Hyperkalemia (principal) | CPT/HCPCS: 36415; 84132 ==

== ENCOUNTER → 2019-04-23 | Outpatient (CLI) | payer MEDICARE ==
[2019-04-23 09:57] LABS: POTASSIUM 5.3 mmol/L (3.6-5.0)
== END ==
LOC: OD 09:05
PROVIDERS: ATTEND Internal Medicine
DX: E87.5 Hyperkalemia (principal)
CPT/HCPCS: 36415; 83735; 84132